=== PATIENT | female | born 1935 | race Two or more races ===

== ENCOUNTER 2016-08-16 16:19 | Inpatient (IN) | payer MEDICARE, MEDICAID ==
--- NOTE | 2016-08-16 16:32 | ED Physician Chart ---
Chief Complaint/HPI - Patient Information Date Seen:: 08/16/16 Time Seen:: 16:26 Chief Complaint:: COLD FEET History of Present Illness:: THIS IS AN 81 YEAR OLD FEMALE SENT [facility] BECAUSE HER FEET WERE CHECKED AND WERE BOTH COLD. SHE IS CHRONICALLY ILL WITH DEMENTIA, DIABETES MELLITUS AND HYPERTENSION. SHE IS DNR BUT ORIENTED TO SELF AND PLACE. Allergies:: Allergies Allergy/AdvReac Type Severity Reaction Status Date / Time No Known Allergies Allergy Verified 08/16/16 16:22 Historian:: Medical Records Review:: Nurse's Note Reviewed Review of Systems - Review of Systems General/Constitutional: No fever, No chills, No weight loss, No weakness, No diaphoresis, No edema, No loss of appetite Skin: No skin lesions, No rash, No bruising Head: No headache, No light-headedness Eyes: No loss of vision, No pain, No diplopia ENT: No earache, No nasal drainage, No sore throat, No tinnitus Neck: No neck pain, No swelling, No thyromegaly, No stiffness, No mass noted Cardio Vascular: No chest pain, No palpitations, No PND, No orthopnea, No edema Pulmonary: No SOB, No cough, No sputum, No wheezing GI: No nausea, No vomiting, No diarrhea, No pain, No melena, No hematochezia, No constipation, No hematemesis G/U: No dysuria, No frequency, No hematuria Musculoskeletal: No bone or joint pain, No back pain, No muscle pain, Other ( BOTH FEET ARE COLD BUT NO PAIN) Endocrine: No polyuria, No polydipsia Psychiatric: No prior psych history, No depression, No anxiety, No suicidal ideation Hematopoietic: No bruising, No lymphadenopathy Allergic/Immuno: No urticaria, No angioedema Neurological: No syncope, No focal symptoms, No weakness, No paresthesia, No headache, No seizure, No dizziness, No confusion, No vertigo Past Medical History - Past Medical History Obtainable: Yes Past Medical History: HTN, DM, CAD, Dyslipidemia, Dementia Family History: None Social History: Non Smoker, No Alcohol, No Drug Use Surgical History: None Psychiatricy History: Dementia Medication: Reviewed Family Medical History - Family Member Mother History Unknown: Yes Ethnicity: Living Status: Physical Exam - Physical Examination General/Constitutional: Awake, Well-developed, well-nourished, Alert, No distress, GCS 15, Non-toxic appearing Head: Atraumatic Eyes: Lids, conjuctiva normal, PERRL, EOMI Skin: Nl inspection, No rash, No skin lesions, No ecchymosis, Well hydrated, No lymphadenopathy ENMT: External ears, nose nl, Nasal exam nl, Lips, teeth, gums nl Neck: Nontender, Full ROM w/o pain, No JVD, No nuchal rigidity, No bruit, No mass, No stridor Respiratory: Nl effort/Exclusion, Clear to Auscultation, No Wheeze/Rhonchi/Rales Cardio Vascular: RRR, No murmur, gallop, rubs, NL S1 S2 GI: No tenderness/rebounding/guarding, No organomegaly, No hernia, Normal BS's, Nondistended, No mass/bruits, No McBurney tenderness : No CVA tenderness Extremities: No tenderness or effusion, Full ROM, normal strength in all extremities, No edema, Normal digits & nails Other Extremities comments:: BOTH FEET ARE MODELED AND COLD FROM THE TOES UP TO THE TIBIAL TUBEROUS PROCESSES. THE DORSAL PULSES WERE WEAK AND THE POSTERIOR TIBIAL WERE ALSO WEAK. THERE IS NO SWELLING OF CALF TENDERNESS Neuro/Psych: Alert/oriented, DTR's symmetric, Normal sensory exam, Normal motor strength, Judgement/insight normal, Mood normal, Normal gait, No focal deficits Misc: normal gait, Normal back, No paraspinal tenderness Labs/Radiology/EKG Results - Lab Results Results: Abnormal Lab Results 08/16/16 08/16/16 08/16/16 16:34 16:34 16:34 WBC 6.9 RBC 4.81 Hgb 12.9 Hct 39.5 MCV 82.0 MCH 26.9 L MCHC Differential 32.8 RDW 14.2 Plt Count 219 MPV 7.9 Neutrophils % 54.6 Lymphocytes % 33.4 Monocytes % 7.7 Eosinophils % 3.5 Basophils % 0.8 PT 10.2 INR 1.03 PTT (Actin FS) 23.0 L Sodium Potassium Chloride Carbon Dioxide Anion Gap BUN Creatinine Est GFR ( Amer) Est GFR (Non-Af Amer) BUN/Creatinine Ratio Glucose Calcium Total Bilirubin AST ALT Alkaline Phosphatase Troponin I Total Protein Albumin Globulin Albumin/Globulin Ratio Triglycerides 179 H Cholesterol 164 LDL Cholesterol Direct 89 HDL Cholesterol 50 TSH 01/20/17 01/20/17 01/20/17 16:34 16:34 16:34 WBC RBC Hgb Hct MCV MCH MCHC Differential RDW Plt Count MPV Neutrophils % Lymphocytes % Monocytes % Eosinophils % Basophils % PT INR PTT (Actin FS) Sodium 135 L Potassium 3.9 Chloride 100 Carbon Dioxide 30.8 Anion Gap 8.1 BUN 19 Creatinine 0.9 Est GFR ( Amer) TNP Est GFR (Non-Af Amer) TNP BUN/Creatinine Ratio 21.1 Glucose 102 Calcium 9.8 Total Bilirubin 0.2 L AST 18 ALT 11 Alkaline Phosphatase 44 Troponin I < 0.01 L Total Protein 7.4 Albumin 4.0 Globulin 3.4 Albumin/Globulin Ratio 1.2 Triglycerides Cholesterol LDL Cholesterol Direct HDL Cholesterol TSH 1.30 - Radiology Results Results: no acute disease seen in the chest x-ray ultrasound of the lower extremities + decrease arterial blood flow. - EKG Interpretations EKG Time:: 16:29 Rhythm: SINUS [place]: LEFT Rate: 63 ED Septic Shock - . 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
[2016-08-16 16:59] LABS: % BASOPHILS 0.8 % (0.0-2.0); % EOSINOPHILS 3.5 % (0.0-5.0); % LYMPHOCYTES 33.4 % (20.0-50.0); % MONOCYTES 7.7 % (2.0-10.0); % NEUTROPHILS 54.6 % (40.0-80.0); HEMATOCRIT 39.5 % (35.0-45.0); HEMOGLOBIN 12.9 gm/dL (11.7-16.1); MEAN CORPUSCULAR HEMOGLOBIN 26.9 pg (27.0-31.0); MEAN CORPUSCULAR HGB CONC 32.8 pg (28.0-36.0); MEAN PLATELET VOLUME 7.9 fl; NEUTROPHILE ABSOLUTE 3.8 Th/cmm (1.8-8.0); PLATELET COUNT 219 Th/cmm (150-400); RED BLOOD COUNT 4.81 Mil/cmm (3.80-5.20); RED CELL DISTRIBUTION WIDTH 14.2 % (11.5-20.0); WHITE BLOOD COUNT 6.9 Th/cmm (4.8-10.8)
[2016-08-16 17:06] LABS: INR 1.03 (0.5-1.4); PROTHROMBIN TIME (TEST) 10.2 SECONDS (9.5-11.5)
[2016-08-16 17:09] LABS: ALB/GLOB RATIO 1.2 (1.0-1.8); ALKALINE PHOSPHATASE 44 U/L (34-104); ANION GAP 8.1 (7.0-16.0); BILIRUBIN,TOTAL 0.2 mg/dL (0.3-1.0); BUN - UREA NITROGEN 19 mg/dL (7-25); BUN/CREATININE RATIO 21.1; CALCIUM SERUM 9.8 mg/dL (8.6-10.3); CARBON DIOXIDE 30.8 mEq/L (21.0-31.0); CHLORIDE 100 mEq/L (98-107); CREATININE - SERUM 0.9 mg/dL (0.6-1.2); GLUCOSE 102 mg/dL (70-105); POTASSIUM SERUM 3.9 mEq/L (3.5-5.1); SGOT 18 U/L (13-39); SGPT/ALT 11 U/L (7-52); SODIUM SERUM 135 mEq/L (136-145)
[2016-08-16 17:10] LABS: CHOLESTEROL 164 mg/dL (<200); TRIGLYCERIDES 179 mg/dL (<150)
[2016-08-16] MEDS ORDERED: Magnesium Hydroxide (MOM) 30 mL UDC PO PRN (19:39)
[2016-08-16] MEDS ORDERED: Non-Formulary Item 1 EA (Melatonin [Melatonin] 3 MG) PO SCH (21:00)
--- NOTE | 2016-08-16 21:24 | Admit Criteria Form ---
Admit Criteria Forms - Admit Criteria Diagnosis: GENERAL ADMISSION CRITERIA (Place 'X' for any and all applicable criteria): Admission is indicated for ANY ONE of the following: [ ]I. Hemodynamic instability as indicated by ANY ONE of the following(1)(2) (3)(4)(5): [ ]a) Vital sign abnormality not readily corrected by appropriate treatment within 12 to 24 hours indicated by ANY ONE of the following: [ ]i) Hypotension [ ]ii) Symptomatic Tachycardia unresponsive to treatment (eg , analgesia, fluids, sedation as indicated) [ ]iii) Orthostatic vital sign changes unresponsive to treatment (eg, fluids) [ ]b) Vital sign abnormality that is severe indicated by ANY ONE of the following: [ ]i) Inadequate perfusion indicated by ANY ONE of the following: [ ]1) Lactic acidosis (greater than 2 mmol/L) [ ]2) New abnormal capillary refill (greater than 3 seconds) [ ]3) Other metabolic acidosis (arterial pH less than 7.35) not otherwise explained [ ]4) Reduced urine output [ ]5) Altered mental status [ ]6) Myocardial Ischemia [ ]v) Mean arterial pressure[A] less than 60 mm Hg [ ]vi) Mean arterial pressure[A] less than 70 mm Hg after 30 minutes of appropriate treatment (eg, fluid resuscitation) [ ]vii) IV inotropic or vasopressor medication required to maintain adequate blood pressure or perfusion [ ]viii) Sustained heart rate greater than 120 beats per minute in adult or child 6 years or older[B]] [ ]II. Hypertension requiring inpatient treatment as indicated by ANY ONE of the following(6)(7)(8): [ ]a) SBP greater than 220 mm Hg or DBP greater than 120 mm Hg despite treatment [ ]b) SBP greater than 140 mm Hg or DBP greater than 100 mm Hg with evidence of acute end organ damage as indicated by ANY ONE of the following: [ ]i) Encephalopathy [ ]ii) Acute renal failure as indicated by new onset of ANY ONE of the following(9)(10)(11)(12)(13): [ ]1) A 3-fold rise in serum creatinine from baseline [ ]2) Serum creatinine greater than 4 mg/dL ( 354 micromoles/L) with acute rise greater than 0.5 mg/dL (44.2 micromoles/L) [ ]3) Reduction of more than 75% in estimated glomerular filtration rate from baseline [ ]4) Estimated glomerular filtration rate less than 35 mL/min/1.73m2 (0.59 mL/sec/1.73m2) in child up to 18 years of age [ ]5) Cessation of urine output indicated by ALL of the following: [ ]A. Adequate volume status [ ]B. Inadequate urine output as indicated by ANY ONE of the following: [ ]a. Urine output less than 0.3 mL/kg/hr for 24 hours [ ]b. Anuria (urine output less than 0.1 mL/kg/hr) for 12 hours [ ]iii) Aortic dissection [ ]iv) Myocardial ischemia [ ]v) Left ventricular heart failure [ ]vi) Retinal hemorrhage [ ]vii) Other significant finding [ ]c) Hypertension in child requiring inpatient treatment as indicated by ALL of the following(14)(15)(16): [ ]i) Outpatient treatment not effective, not available, or not appropriate [ ]ii) SBP or DBP greater than 95th percentile for age [ ]iii) Evidence of acute end organ damage as indicated by ANY ONE of the following: [ ]1) Altered mental status [ ]2) Acute renal failure as indicated by new onset of ANY ONE of the following(9)(10)(11)(12)(13): [ ]A. A 3-fold rise in serum creatinine from baseline [ ]B. Serum creatinine greater than 4 mg/dL (354 micromoles/L) with acute rise greater than 0.5 mg/dL (44.2 micromoles/L) [ ]C. Reduction of more than 75% in estimated glomerular filtration rate from baseline [ ]D. Estimated glomerular filtration rate less than 35 mL/min/1.73m2 (0.59 mL/sec/1.73m2)in child up to 18 years of age [ ]E. Cessation of urine output indicated by ALL of the following: [ ]a. Adequate volume status [ ]b. Inadequate urine output as indicated by ANY ONE of the following: [ ]1) Urine output less than 0.3 mL/kg/hr for 24 hours [ ]2) Anuria (urine output less than 0.1 mL/kg/hr) for 12 hours [ ]3) Severe headache [ ]4) Visual disturbance [ ]5) Retinal hemorrhage [ ]6) Other significant finding [ ]III. Acute cardiac or peripheral ischemia as indicated by ANY ONE of the following: [ ]a) Acute coronary syndrome(17)(18) [ ]b) Acute peripheral ischemia (eg, pulseless, cool, mottled, or cyanotic extremity)(19) [ ]IV. Cardiac arrhythmias or findings of immediate concern indicated by ANY ONE of the following(20)(21): [ ]a) Heart rhythms that are inherently dangerous or unstable indicated by ANY ONE of the following(22)(23)(24): [ ]i) Resuscitated ventricular fibrillation or cardiac arrest [ ]ii) Ventricular escape rhythm [ ]iii) Sustained ventricular tachycardia (30 seconds or more of ventricular rhythm at greater than 100 beats per minute) [ ]iv) Nonsustained ventricular tachycardia and ANY ONE of the following: [ ]1) Suspected cardiac ischemia as cause or consequence of ventricular tachycardia [ ]2) In setting of acute myocarditis [ ]b) Unstable cardiac conduction defects indicated by ANY ONE of the following(24)(25)(26): [ ]i) Type II second-degree atrioventricular block [ ]ii) Third-degree atrioventricular block [ ]iii) New-onset left bundle branch block with suspected myocardial ischemia [ ]c) Any heart rhythm and ANY ONE of the following(22)(23)(27)(28)( 29): [ ] i) Continuous long-term ECG monitoring needed (eg, initiation of drug requiring monitoring for more than 24 hours) [ ] ii) Patient has automatic implanted cardioverter defibrillator that is repeatedly firing, malfunctioning, or in need of immediate adjustment of settings beyond the scope of ambulatory or observation care. [ ]d) Heart rhythms of concern due to ANY ONE of the following: [ ]i) Hypotension [ ]ii) Respiratory distress [ ]iii) Association with other significant symptoms (eg, bradycardia with syncope or ongoing dizziness, supraventricular tachycardia with chest pain) (27)(28) (30) [ ] V. Severe heart failure as indicated by ANY ONE of the following ( 31)(32): [ ]a) Respiratory distress [ ]b) Hypotension [ ]c) Anasarca (refractory to outpatient therapy) [ ]d) Cardiac arrhythmias of immediate concern [ ]e) Myocardial ischemia [ ]. Respiratory abnormalities, including ANY ONE of the following(33)(34) (35)(36): [ ]a) Respiratory rate greater than 30 breaths per minute unresponsive to treatment [A] [ ]b) New saturation of arterial oxygen less than 90% [ ]c) New partial pressure of carbon dioxide greater than 44 mm Hg ( 5.9 kPa) [ ]d) Supplemental oxygen or respiratory treatments needed that are new or not performable at other levels of care [ ]e) New-onset cyanosis [ ]f) Inability to protect airway [ ]g) Chronic lung disease with severe deterioration (not responsive to emergency and observation care treatment as appropriate) as indicated by ANY ONE of the following(34)(36 ): [ ]i) SaO2 5% below baseline in patient with chronic hypoxemia [ ]ii) New requirement for supplemental oxygen to keep SaO2 at baseline or acceptable level [ ]iii) Required supplemental oxygen performable only in acute inpatient setting [ ]iv) Severe airflow or ventilation abnormalities [ ]v) Previously mobile patient unable to walk between rooms [ ]vi Inability to eat or sleep due to dyspnea [ ]vii) Rapid rate of exacerbation onset [ ]viii) Altered mental status ]VII. Severe airflow or ventilation abnormalities (not responsive to emergency and observation care treatment as appropriate) as indicated by ANY ONE of the following(33)(34)(35)(37): [ ]a) PCO2 greater than 42 mm Hg (5.6 kPa) and pH less than 7.35 (new ) [ ]b) Documented PCO2 increased more than 5 mm Hg (0.7 kPa) from disease baseline [ ]c) Airflow measurements [B] less than 60% of previous best or predicted (eg, peak expiratory flow rate less than 300 L/minute) despite intensive emergent treatment [C] [ ]d) Required respiratory treatments that are performable only in acute inpatient setting [ ]VIII. Impending or actual respiratory arrest ( Also use Respiratory Failure GRG for severe respiratory disease and long-term mechanical ventilation patients) [ ]IX. Neurologic abnormalities, including ANY ONE of the following: [ ]a) New findings that suggest ANY ONE of the following: [ ]i) LOCOM[employer] OPERATOR infection(38) [ ]ii) Cerebral bleeding, ischemia, or vasospasm(39)(40) [ ]iii) Increased intracranial pressure, hydrocephalus, or cerebral edema(41)(42)(43) [ ]iv) Spinal cord injury(44) [ ]b) Uncontrolled seizures(45) [ ]c) New-onset coma (eg, Selin coma scale score less than 9) or unexplained abnormal mental status (eg, Selin coma scale score less than 14) [D](41)(46)(47) [ ]X. New-onset severe neurologic findings requiring inpatient care; examples include(42)(48)(49): [ ]a) Papilledema [ ]b) Cerebral edema [ ]c) Mass effect on CT scan [ ]XI. Suspected acute intra-abdominal process with peritoneal signs, abdominal mass, or similar findings (50)(51)(52) [ ]XII. Severe physiologic disorder remaining after emergency or observation level care (as appropriate) as indicated by ANY ONE of the following (53): [ ]a) Significant dehydration [ ]b) Diabetic ketoacidosis [ ]c) Hyperglycemic hyperosmolar state (eg, osmolality greater than 320 mOsm/kg (mmol/kg) [ ]d) Hypoglycemia [ ]e) Other (new) acid-base disorder with pH less than 7.35 or greater than 7.5(54) [ ]f) Thyroid storm (55) [ ]g) Myxedema coma (55) [ ]XIII. Abdominal abnormalities with ANY ONE of the following(56)(57): [ ]a) Absent bowel sounds with complete ileus [ ]b) Signs of intestinal obstruction or peritonitis [E] [ ]c) Nausea and vomiting that cannot be controlled with outpatient or observation care [ ]XIV. Acute renal failure as indicated by new onset of ANY ONE of the following(9)(10)(11)(12)(13): [ ]a) A 3-fold rise in serum creatinine from baseline [ ]b) Serum creatinine greater than 4 mg/dL (354 micromoles/L) with acute rise greater than 0.5 mg/dL (44.2 micromoles/L) [ ]c) Reduction of more than 75% in estimated glomerular filtration rate from baseline [ ]d) Estimated glomerular filtration rate less than 35 mL/min/ 1.73m2 (0.59 mL/sec/1.73m2) in child up to 18 years of age [ ]e) Cessation of urine output indicated by ALL of the following: [ ]i) Adequate volume status [ ]ii) Inadequate urine output as indicated by ANY ONE of the following: [ ]1) Urine output less than 0.3 mL/kg/hr for 24 hours [ ]2) Anuria (urine output less than 0.1 mL/kg/hr) for 12 hours [ ]XV. Significant uremic complications as indicated by ANY ONE of the following(58)(59)(60): [ ]a) Outpatient therapy is ineffective or not feasible for ANY ONE of the following: [ ]i) Severe heart failure [ ]ii) Severehypertension [ ]iii) Pleural effusion [ ]iv) Pericarditis or pericardial effusion [ ]b) Cardiac arrhythmias of immediate concern [ ]c) Intractable nausea or vomiting [ ]d) Recurrent seizures [ ]e) Encephalopathy [ ]f) Bleeding abnormalities (eg, platelet dysfunction) with active (eg, gastrointestinal) bleeding [ ]g) Dialysis indicated before long-term access or ambulatory arrangements can be made [ ]h) Significant metabolic or electrolyte abnormalities (eg, severe acidosis or hyperkalemia) [ ]XVI. High fever or other high-risk infection situation as indicated by ANY ONE of the following(61)(62)(63)(64): [ ]a) Outpatient and observation care antimicrobial treatment unavailable, not effective, or not appropriate [ ]b) Documented bacteremia [ ]c) Temperature greater than 40.5 degrees C (104.9 degrees F) ( oral) [ ]d) Temperature greater than 39.5 degrees C (103.1 degrees F) ( oral) or less than 36 degrees C (96.8 degrees F) (rectal) that does not respond to e treatment and observation care [ ] XVII. Temperature less than 95 degrees F (35 degrees C)(rectal)(65) [ ] XVIII. Severe nutritional abnormalities as indicated by ALL of the following (66)(67): [ ]a) Inability to tolerate or establish sufficient oral or other enteral nutrition in outpatient setting [ ]b) Parenteral nutrition regimen need that must be implemented on inpatient basis [ ] XIX. Severe electrolyte abnormalities indicated by ALL of the following(68) (69)(70): [ ]a) Electrolytes and associated findings are not as expected for patient baseline or acceptable treatment effects. [ ]b) Severe abnormalities indicated by ANY ONE of the following: [ ]i) Sodium less than 130 mEq/L (mmol/L) (new) [ ]ii)Sodium less than 135 mEq/L (mmol/L) with ANY ONE of the following: [ ]1) Uncorrectable (to near normal or chronic baseline) after trial of outpatient and emergency treatment [ ]2) Altered mental status [ ]3) Seizures [ ]4) Severe medical etiology requiring inpatient management (eg, heart failure, hypovolemia) [ ]iii) Sodium greater than 155 mEq/L (mmol/L) [ ]iv) Sodium greater than 150 mEq/L (mmol/L) with ANY ONE of the following: [ ]1) Uncorrectable (to near normal or chronic baseline) with outpatient and emergency treatment [ ]2) Altered mental status [ ]3) Seizures [ ]4) Severe medical etiology (eg, hypovolemia, diabetes insipidus) [ ]v) Potassium less than 2.5 mEq/L (mmol/L) despite outpatient and emergency treatment [ ]vi) Potassium less than 3 mEq/L (mmol/L) with ANY ONE of the following: [ ]1) Weakness [ ]2) Cardiac abnormality (eg, arrhythmia, conduction disturbance) [ ]3) Cardiac ischemia [ ]4) Ileus [ ]5) Ongoing medical cause requiring inpatient management (eg, acute renal wasting or SIADH) [ ]6) Other severe symptoms [ ]vii) Potassium greater than 6.5 mEq/L (mmol/L) [ ]viii) Potassium greater than 5 mEq/L (mmol/L) with ANY ONE of the following: [ ]1) Uncorrectable (to near normal or chronic baseline) with outpatient and emergency treatment [ ]2) Severe ECG findings [F] [ ]3) Acute worsening of renal failure (creatinine greater than 2.5 mg/dL (221 micromoles/L) or significant elevation for age and size) [ ]4) Severe weakness [ ]5) Severe medical etiology (eg, hemolysis, infection, drug overdose) [ ]ix) Calcium less than 7 mg/dL (1.75 mmol/L) despite outpatient and emergency treatment (72) [ ]x) Calcium less than 8 mg/dL (2 mmol/L) with significant symptoms or findings; examples include(72): [ ]1) Altered mental status [ ]2) Muscle spasms [ ]3) Seizures [ ]4) Breathing difficulty [ ]5) Cardiac abnormality (eg, arrhythmia or conduction disturbance) [ ]xi) Calcium greater than 14 mg/dL (3.5 mmol/L)(72) [ ]xii) Calcium greater than 12 mg/dL (3 mmol/L) with ANY ONE of the following(72): [ ]1) Uncorrectable (to near normal or chronic baseline) with outpatient and emergency treatment [ ]2) Significant dehydration or hypovolemia as indicated by ALL of the following(70)(73)(74): [ ]A. Not resolved with initial treatments [ ]B. Clinically significant dehydration as indicated by ANY ONE of the following: [ ]a. Vomiting refractory to outpatient treatment (ie, precluding oral rehydration) [ ]b. Inability to drink [ ]c. Hypernatremia or other electrolyte abnormality unable to be corrected with outpatient and emergency treatment [ ]d. Failure to remain hydrated with outpatient therapy [ ]e. Reduced urine output [ ]f. Hypotension [ ]g. Serious cause for dehydration requiring acute hospitalization (eg, bowel obstruction, increased intracranial pressure, infectious cause) [ ]h. Child with ANY ONE of the following(75): [ ]1) Severe abdominal tenderness [ ]2) Adequate care not available at home [ ]3) Severe dehydration ( greater than 9% loss of body weight) [ ]4) Significant symptoms or findings; examples include: [ ]A. Altered mental status [ ]B. Cardiac abnormality (eg, arrhythmia, conduction disturbance) [ ]C. Malignant etiology requiring inpatient treatment [ ]xiii) Phosphorus less than 1 mg/dL (0.32 mmol/L) [ ]xiv) Phosphorus less than 1.5 mg/dL (0.48 mmol/L) with ANY ONE of the following: [ ]1) Patient unresponsive to outpatient and emergency treatment [ ]2) Significant symptoms or findings; examples include: [ ]A. Weakness [ ]B. Altered mental status [ ]C. Breathing difficulty [ ]D. Seizures [ ]E. Rhabdomyolysis [ ]xv) Phosphorus greater than 10 mg/dL (3.2 mmol/L) [ ]xvi) Phosphorus greater than 4.5 mg/dL (1.45 mmol/L) (new) with ANY ONE of the following: [ ]1) Severe medical etiology (eg, crush injury, acute renal failure) [ ]2) Associated hypocalcemia with significant findings; examples include: [ ]A. Neurologic symptoms [ ]B. Altered mental status [ ]C. Muscle spasms [ ]D. Seizures [ ]E. Breathing difficulty [ ]F. Cardiac abnormality (eg, arrhythmia, conduction disturbance) [ ]xvii) Magnesium less than 1 mg/dL (0.41 mmol/L) [ ]xviii) Magnesium less than 1.5 mg/dL (0.62 mmol/L) with ANY ONE of the following: [ ]1) Patient unresponsive to outpatient and emergency treatment [ ]2) Associated hypocalcemia with significant findings; examples include: [ ]A. Altered mental status [ ]B. Muscle spasms [ ]C. Seizures [ ]D. Breathing difficulty [ ]E. Cardiac abnormality (eg, arrhythmia , conduction disturbance) [ ]3) Associated hypokalemia (potassium less than 3 mEq/L (mmol/L)) with risk of arrhythmia [ ]xix) Magnesium greater than 4 mEq/L (2 mmol/L) [ ]xx) Magnesium greater than 2.5 mEq/L (1.25 mmol/L) with significant symptoms or findings; examples include: [ ]1) Weakness [ ]2) Altered mental status [ ]3) Cardiac abnormality (eg, arrhythmia, conduction disturbance) [ ]4) Breathing difficulty [ ]5) Severe medical etiology (eg, renal failure, hypovolemia) [ ]xxi) Uric acid greater than 20 mg/dL (1190 micromoles/L)(76) [ ]xxii) Uric acid greater than 8 mg/dL (476 micromoles/L) with significant symptoms or findings of tumor lysis syndrome; examples include(76): [ ]1) Creatinine greater than 1.5 times upper limit of normal [ ]2) Cardiac abnormality (eg, arrhythmia, conduction disturbance) [ ]3) Seizure [ ]XX. Acute blood loss causing significant abnormality as indicated by ANY ONE of the following(77)(78): [ ]a) Hemoglobin less than 10 g/dL (100 g/L) (not baseline) [ ]b) Hematocrit less than 30% (0.30) (not baseline) [ ]c) Repeat hematocrit decreased more than 2% (0.02) [ ]d) Uncontrolled bleeding [ ]XXI. Severe anemia indicated by ANY ONE of the following(78)(79): [ ]a) Altered mental status [ ]b) Chest pain [ ]c) Exertional dyspnea [ ]d) Syncope [ ]e) Other findings suggesting inadequate perfusion [ ]f) Treatment with transfusion or volume replacement is ineffective at resolving ANY ONE of the following [G]: [ ]i) Tachycardia for age [ ]ii) Orthostatic vital sign changes as indicated by ANY ONE of the following(80): [ ]1) Fall in SBP of 20 mm Hg or more 1 to 3 minutes after patient sits or stands from recumbent position [ ]2) Fall in DBP of 10 mm Hg or more 1 to 3 minutes after patient sits or stands from recumbent position [ ]XXII. High-risk low platelet count as indicated by ANY ONE of the following( 81)(82): [ ]a) Severe or life-threatening bleeding (eg, intracranial, major gastrointestinal, or extensive mucosal bleeding), with any reduced platelet count [ ]b) Platelet count less than 20,000/mm3 (20 x109/L) with any active bleeding [ ]c) Platelet count less than 10,000/mm3 (10 x109/L) with minor purpura or petechiae [ ]d) Platelet count less than 5000/mm3 (5 x109/L) [ ]e) Low platelet count with hemolytic anemia [ ]XXIII. Disseminated intravascular coagulation(77)(83) [ ]XXIV. Severe adverse drug or systemic toxin reaction requiring inpatient treatment; examples include(84)(85): [ ]a) Serotonin syndrome(86) [ ]b) Neuroleptic malignant syndrome(86) [ ]c) Cholinergic syndrome with severe symptoms (eg, bronchorrhea, weakness, mental status changes, seizures) [ ]d) Sympathetic syndrome with severe symptoms (eg, seizures, mental status changes, cardiac dysrhythmias) [ ]e) Anticholinergic syndrome [ ]XXV. Severe pain requiring acute inpatient management as indicated by ALL of the following (87)(88)(89): [ ]a) Continuous or frequent (eg, every 2 to 4 hours) parenteral analgesics required [H] [ ]b) Rapid improvement expected from treatment or acute intervention (eg, surgery, anesthesia procedure) [ ]XXVI.Severe behavioral health issues judged unmanageable at a lower level of care (eg, residential) in a patient who is ANY ONE of the following(91) [ ]a) Acutely suicidal [ ]b) A danger to self (eg, self-mutilating or suicidal behavior) [ ]c) A danger to others (eg, assaultive or homicidal behavior) [ ]d) Incapacitated because of grave disability (eg, inability to provide for self at lower level of care) (92) [ X]XXVII. Inpatient monitoring needed; examples include(1)(3)(87)(93)(94)(95)( 96): [X ]a) Vital signs, neurologic signs, or vascular checks more frequently than every 4 hours [ ]b) Cardiac or respiratory monitoring beyond the scope (eg, over 24 hours) of observation care [ ]c) Pulmonary artery catheter monitoring [ ]d) Suspected compartment syndrome(97) (98) [ ]e) Cerebral bleeding, hydrocephalus, or vasospasm monitoring [ ]f) Increased intracranial pressure or cerebral edema monitoring [ ]g) monitoring [ ]XXVIII. Treatment requiring inpatient care; examples include: [ ]a) IV fluid to replace significant ongoing losses (greater than 3 L/m2 per day)(53) [ ]b) High concentration oxygen (greater than 40%)(33)(99)(100) [ ]c) Frequent respiratory therapy (more frequently than every 4 hours) to maintain airflow rates greater than 60% of baseline(33)(99)(100) [ ]d) Epidural analgesia(87) [ ]e) IV anticoagulation, vasoactive, or antiarrhythmic medication(19 )(23) [ ]f) Acute thrombolytics (generally require 24 hours of observation )(101)(102) [ ]XXIX. Emergency procedures needed; examples include: [ ]a) Emergency inpatient surgery [ ]b) Temporary pacemaker placement(103) [ ]c) Chest tube placement with active evacuation (eg, suction, drainage)(104) [ ]d) Emergent cardioversion(105) [ ]e) Emergent cardiac or vascular procedures (eg, cardiac catheterization, angioplasty) (17)(18) [ ]f) Emergent dialysis access placement and institution(10)(106) [ ]g) Emergent pericardiocentesis(107) [ ]h) Emergent plasmapheresis or leukapheresis(83) [ ]i) Emergent tracheostomy The original [employer] content created by [employer] has been revised. The portions of the content which have been revised are identified through the use of italic text or in bold, and [employer] has neither reviewed nor approved the modified material. All other unmodified content is copyright [employer]. Please see references footnoted in the original [employer] edition 2016 Admit Criteria Met?: Yes
[2016-08-16] MEDS: Sodium Chloride 0.9% 1,000 ML IV SCH (22:06)
[2016-08-17 07:14] LABS: % BASOPHILS 0.2 % (0.0-2.0); % EOSINOPHILS 3.2 % (0.0-5.0); % LYMPHOCYTES 27.3 % (20.0-50.0); % MONOCYTES 7.8 % (2.0-10.0); % NEUTROPHILS 61.5 % (40.0-80.0); HEMATOCRIT 37.8 % (35.0-45.0); HEMOGLOBIN 12.5 gm/dL (11.7-16.1); MEAN CELL VOLUME 81.7 fl (81-100); MEAN CORPUSCULAR HEMOGLOBIN 27.1 pg (27.0-31.0); MEAN CORPUSCULAR HGB CONC 33.1 pg (28.0-36.0); MEAN PLATELET VOLUME 7.5 fl; NEUTROPHILE ABSOLUTE 4.2 Th/cmm (1.8-8.0); PLATELET COUNT 202 Th/cmm (150-400); RED BLOOD COUNT 4.62 Mil/cmm (3.80-5.20); RED CELL DISTRIBUTION WIDTH 14.1 % (11.5-20.0); WHITE BLOOD COUNT 6.8 Th/cmm (4.8-10.8)
[2016-08-17 07:26] LABS: ALB/GLOB RATIO 1.2 (1.0-1.8); ALKALINE PHOSPHATASE 39 U/L (34-104); ANION GAP 6.7 (7.0-16.0); BILIRUBIN,TOTAL 0.3 mg/dL (0.3-1.0); BUN - UREA NITROGEN 17 mg/dL (7-25); BUN/CREATININE RATIO 21.3; CALCIUM SERUM 9.7 mg/dL (8.6-10.3); CHLORIDE 104 mEq/L (98-107); CREATININE - SERUM 0.8 mg/dL (0.6-1.2); GLUCOSE 78 mg/dL (70-105); POTASSIUM SERUM 3.7 mEq/L (3.5-5.1); SGOT 17 U/L (13-39); SGPT/ALT 10 U/L (7-52); SODIUM SERUM 138 mEq/L (136-145)
[2016-08-17] MEDS: Multivitamin w/ Minerals Tab PO SCH (08:27)
[2016-08-17] MEDS ORDERED: MEMANTINE 7 MG PO SCH (09:00)
[2016-08-17] MEDS ORDERED: Non-Formulary Item 1 EA (Dextran 70/Hypromellose [Artificial Tears] 1 EACH) OP SCH (09:00)
[2016-08-17] MEDS ORDERED: Non-Formulary Item 1 EA (Isosorbide Dinitrate [Isosorbide Dinitrate] 30 MG) PO SCH (09:00)
[2016-08-17] MEDS ORDERED: Non-Formulary Item 1 EA (Diclofenac Sodium [Voltaren] 100 GM) TP SCH (09:00)
--- NOTE | 2016-08-17 12:03 | Diagnostic Imaging Report ---
Portable chest x-ray HISTORY: Shortness of breath The heart is enlarged. No focal pulmonary processes. No hilar or mediastinal abnormalities. IMPRESSION: 1. No acute pulmonary processes 2. Cardiomegaly
--- NOTE | 2016-08-17 12:03 | Diagnostic Imaging Report ---
Bilateral lower extremity Doppler arterial ultrasound exam HISTORY: Ischemic vascular disease, pain Sonographic sector images were obtained through the arterial systems of both legs. Associated Doppler data was obtained. The exam of the right leg demonstrates biphasic waveforms to the common femoral, superficial femoral, popliteal, anterior tibial, posterior tibial, and dorsalis pedis arteries. Velocities are maintained through the arterial system. Sonographic images demonstrate mild diffuse atherosclerotic changes throughout the arterial system. The ankle-brachial index could not be obtained. The exam of the left leg demonstrates biphasic waveforms throughout the arterial system. Maintenance of normal velocities. Mild diffuse atherosclerotic changes are seen. Pressure measurements cannot be obtained. IMPRESSION: 1. Evidence of mild diffuse bilateral atherosclerotic changes.
--- NOTE | 2016-08-17 13:55 | General Progress Note ---
Subjective - Review of Systems Service Date: 08/17/15 Subjective: My feets are cold Objective - Results Result Diagrams: 08/17/16 06:20 08/17/16 06:20 Recent Labs: Laboratory Last Values WBC 6.8 Th/cmm (4.8-10.8) 08/17/16 06:20 RBC 4.62 Mil/cmm (3.80-5.20) 08/17/16 06:20 Hgb 12.5 gm/dL (11.7-16.1) 08/17/16 06:20 Hct 37.8 % (35.0-45.0) 08/17/16 06:20 MCV 81.7 fl (81-100) 08/17/16 06:20 MCH 27.1 pg (27.0-31.0) 08/17/16 06:20 MCHC Differential 33.1 pg (28.0-36.0) 08/17/16 06:20 RDW 14.1 % (11.5-20.0) 08/17/16 06:20 Plt Count 202 Th/cmm (150-400) 08/17/16 06:20 MPV 7.5 fl 08/17/16 06:20 Neutrophils % 61.5 % (40.0-80.0) 08/17/16 06:20 Lymphocytes % 27.3 % (20.0-50.0) 08/17/16 06:20 Monocytes % 7.8 % (2.0-10.0) 08/17/16 06:20 Eosinophils % 3.2 % (0.0-5.0) 08/17/16 06:20 Basophils % 0.2 % (0.0-2.0) 08/17/16 06:20 PT 10.2 SECONDS (9.5-11.5) 08/16/16 16:34 INR 1.03 (0.5-1.4) 08/16/16 16:34 PTT (Actin FS) 23.0 SECONDS (26.0-38.0) L 08/16/16 16:34 Sodium 138 mEq/L (136-145) 08/17/16 06:20 Potassium 3.7 mEq/L (3.5-5.1) 08/17/16 06:20 Chloride 104 mEq/L (98-107) 08/17/16 06:20 Carbon Dioxide 31.0 mEq/L (21.0-31.0) 08/17/16 06:20 Anion Gap 6.7 (7.0-16.0) L 08/17/16 06:20 BUN 17 mg/dL (7-25) 08/17/16 06:20 Creatinine 0.8 mg/dL (0.6-1.2) 08/17/16 06:20 Est GFR ( Amer) TNP 08/17/16 06:20 Est GFR (Non-Af Amer) TNP 08/17/16 06:20 BUN/Creatinine Ratio 21.3 08/17/16 06:20 Glucose 78 mg/dL (70-105) 08/17/16 06:20 Hemoglobin A1c % 9.9 % (4.0-6.0) H 08/17/16 06:20 Calcium 9.7 mg/dL (8.6-10.3) 08/17/16 06:20 Total Bilirubin 0.3 mg/dL (0.3-1.0) 08/17/16 06:20 AST 17 U/L (13-39) 08/17/16 06:20 ALT 10 U/L (7-52) 08/17/16 06:20 Alkaline Phosphatase 39 U/L (34-104) 08/17/16 06:20 Troponin I < 0.01 ng/mL (0.01-0.05) L 08/16/16 16:34 Total Protein 6.7 gm/dL (6.0-8.3) 08/17/16 06:20 Albumin 3.7 gm/dL (3.7-5.3) 08/17/16 06:20 Globulin 3.0 gm/dL 08/17/16 06:20 Albumin/Globulin Ratio 1.2 (1.0-1.8) 08/17/16 06:20 Triglycerides 179 mg/dL (<150) H 08/16/16 16:34 Cholesterol 164 mg/dL (<200) 08/16/16 16:34 LDL Cholesterol Direct 89 mg/dL (75-193) 08/16/16 16:34 HDL Cholesterol 50 mg/dL (23-92) 08/16/16 16:34 TSH 1.30 uIU/ml (0.34-5.60) 08/16/16 16:34 - Physical Exam Vitals and I&O: Vital Signs Temp 97.0 F 08/17/16 08:00 Pulse 78 08/17/16 08:30 Resp 18 08/17/16 11:00 BP 135/76 08/17/16 08:30 Pulse Ox 100 08/17/16 08:00 Intake & Output 08/16/16 08/17/16 08/17/16 18:59 06:59 18:59 Other: Stool Characteristics Soft Active Medications: Current Medications Acetaminophen (Tylenol) 650 mg PO Q4HR PRN PRN Reason: PAIN Stop: 10/15/16 19:38 Artificial Tears (Artificial Tears Ophth Soln) 1 drop EACH EYE BID [facility] Stop: 10/16/16 16:59 Docusate Sodium (Colace) 100 mg PO BID [facility] Stop: 10/16/16 08:59 Last Admin: 08/17/16 08:27 Dose: 100 mg Duloxetine HCl (Cymbalta) 60 mg PO DAILY [facility] Stop: 10/16/16 08:59 Last Admin: 08/17/16 08:27 Dose: 60 mg Escitalopram Oxalate (Lexapro) 5 mg PO DAILY [facility] PRN Reason: Protocol Stop: 10/16/16 08:59 Famotidine (Pepcid) 40 mg PO BID [facility] Stop: 10/16/16 08:59 Last Admin: 08/17/16 08:26 Dose: 40 mg Gabapentin (Neurontin) 300 mg PO TID [facility] Stop: 10/15/16 20:59 Last Admin: 08/17/16 08:27 Dose: 300 mg Sodium Chloride (Nacl 0.9%) 1,000 mls @ 50 mls/hr IV .Q20H [facility] Stop: 10/15/16 19:46 Last Admin: 08/16/16 22:06 Dose: 50 mls/hr Isosorbide Dinitrate (Isordil) 30 mg PO DAILY [facility] Stop: 10/17/16 08:59 Magnesium Hydroxide (Milk Of Magnesia) 30 ml PO PRN PRN PRN Reason: Constipation Stop: 10/15/16 19:38 Memantine (Namenda) 5 mg PO DAILY [facility] Stop: 10/16/16 08:59 Last Admin: 08/17/16 08:30 Dose: 5 mg Metoprolol Tartrate (Lopressor) 12.5 mg PO DAILY [facility] Stop: 10/16/16 08:59 Last Admin: 08/17/16 08:30 Dose: 12.5 mg Miscellaneous (Melatonin [Melatonin]) 3 mg PO HS [facility] Stop: 10/15/16 20:59 Naproxen (Naprosyn) 500 mg PO Q12HR [facility] Stop: 10/16/16 20:59 Simvastatin (Zocor) 20 mg PO QPM [facility] PRN Reason: Protocol Stop: 10/16/16 16:59 Triamterene/HCTZ (Dyazide) 1 cap PO MWF [facility] Stop: 10/18/16 08:59 General: Alert, Cooperative, No acute distress HEENT: Atraumatic Neck: Supple Cardiovascular: Regular rate Lungs: Clear to auscultation Abdomen: Bowel sounds Extremities: Other (Diminished bilateral pulses, colness of both foots. ) Neurological: Other (Non Ambulatory) Skin: Other (warm and dry) Psych/Mental Status: Mental status NL Assessment/Plan - Problem List Patient Problems: All Active Problems MOTTLED FEET CIRCULATION AND COOL TEMP (Acute) - Assessment Assessment: Patient is awake, alert, calm in no acute distress. Dx PVD, DM, HTN, dementia. - Plan Plan: Abdominal and pelvic US requested, Ankle-braquial index requested. Will continue to monitoring
--- NOTE | 2016-08-17 16:53 | History & Physical ---
CHIEF COMPLAINT: Poor lower extremities circulation. HISTORY OF PRESENT ILLNESS: This is the case of an 81-year-old female that I follow in the [facility]. I received a call from the [facility] stating the patient was complaining of lower extremity pain and coldness of both extremities. Order to transfer the patient to ER was given in order to evaluate and treat. PAST MEDICAL HISTORY: The patient has past medical history of diabetes mellitus, hypertension, dementia, osteoarthrosis, depression and general muscle weakness. ALLERGIES: No known allergies. PAST SURGICAL HISTORY: Noncontributory. FAMILY HISTORY: Noncontributory. SOCIAL HISTORY: The patient is a permanent resident of a [facility]. She is DNR. MEDICATIONS: Reviewed. REVIEW OF SYSTEMS: LUNGS: The patient denies shortness of breath. HEART: The patient denies chest pain. ABDOMEN: Unremarkable. EXTREMITIES: The patient referred pain and coldness of both lower extremities. NEUROLOGICAL: The patient is awake, alert, in no acute distress. Neurological examination was not completed due to patient is not able to walk. IMPRESSION: 1. Peripheral vascular disease. 2. Diabetes mellitus. 3. Hypertension. 4. Dementia. 5. Depression. 6. General muscle weakness. PLAN: 1. The patient will be admitted in the medical surgical floor. 2. IV normal saline. 3. Diet: Low in sodium and diabetic diet. 4. Continue with [facility] medications. 5. Abdominal and pelvic ultrasound. 6. CBC and CMP at a.m. [facility]# [id number]
[2016-08-17] MEDS: Escitalopram Oxalate 5 mg Tab PO SCH (17:08)
[2016-08-17] MEDS: Polyvinyl Alcohol Ophth Soln 15 mL Bottle EACH EYE SCH (17:12)
[2016-08-17] MEDS: Sodium Chloride 0.9% 1,000 ML IV SCH (20:57)
[2016-08-18 05:43] LABS: % BASOPHILS 0.7 % (0.0-2.0); % EOSINOPHILS 4.7 % (0.0-5.0); % LYMPHOCYTES 30.5 % (20.0-50.0); % MONOCYTES 9.8 % (2.0-10.0); % NEUTROPHILS 54.3 % (40.0-80.0); HEMOGLOBIN 12.7 gm/dL (11.7-16.1); MEAN CELL VOLUME 81.4 fl (81-100); MEAN CORPUSCULAR HEMOGLOBIN 27.2 pg (27.0-31.0); MEAN CORPUSCULAR HGB CONC 33.4 pg (28.0-36.0); MEAN PLATELET VOLUME 7.1 fl; PLATELET COUNT 206 Th/cmm (150-400); RED BLOOD COUNT 4.66 Mil/cmm (3.80-5.20); RED CELL DISTRIBUTION WIDTH 14.1 % (11.5-20.0)
[2016-08-18 05:48] LABS: WHITE BLOOD COUNT 5.4 Th/cmm (4.8-10.8)
[2016-08-18 05:59] LABS: ALB/GLOB RATIO 1.2 (1.0-1.8); ALKALINE PHOSPHATASE 41 U/L (34-104); BILIRUBIN,TOTAL 0.4 mg/dL (0.3-1.0); BUN - UREA NITROGEN 13 mg/dL (7-25); BUN/CREATININE RATIO 16.3; CALCIUM SERUM 9.3 mg/dL (8.6-10.3); CARBON DIOXIDE 30.2 mEq/L (21.0-31.0); CREATININE - SERUM 0.8 mg/dL (0.6-1.2); GLUCOSE 246 mg/dL (70-105); SGOT 15 U/L (13-39); SGPT/ALT 9 U/L (7-52)
[2016-08-18 07:57] LABS: CHLORIDE 104 mEq/L (98-107); POTASSIUM SERUM 4.1 mEq/L (3.5-5.1); SODIUM SERUM 139 mEq/L (136-145)
[2016-08-18 08:13] LABS: ANION GAP 8.9 (7.0-16.0)
[2016-08-18] MEDS: Escitalopram Oxalate 5 mg Tab PO SCH (08:23)
[2016-08-18] MEDS: Multivitamin w/ Minerals Tab PO SCH (08:24)
[2016-08-18] MEDS: Polyvinyl Alcohol Ophth Soln 15 mL Bottle EACH EYE SCH ×2 (08:29→16:15)
--- NOTE | 2016-08-18 10:08 | Diagnostic Imaging Report ---
Abdominal ultrasound HISTORY: Pain Exam is limited due to bowel gas. The liver exhibits a homogeneous parenchyma. No focal lesions. The gallbladder appears normal. No calculi are seen. No biliary dilatation. The pancreas cannot be visualized due to bowel gas. The kidneys appear normal bilaterally. The spleen is normal in size. Limited visualization of the abdominal aorta is unremarkable. No definite aneurysm. No other obvious retroperitoneal or intra-abdominal abnormalities. IMPRESSION: 1. Limited exam due to bowel gas 2. No definite abnormalities
--- NOTE | 2016-08-18 10:09 | Diagnostic Imaging Report ---
Pelvic ultrasound HISTORY: Mass. Exam is limited due to transabdominal sonographic technique. There is poor visualization of the uterus. The ovaries are not clearly visualized. No abnormal masses or abnormal fluid collections. IMPRESSION: 1. Very limited exam with no definite abnormal masses or abnormal fluid collections
--- NOTE | 2016-08-18 11:20 | General Progress Note ---
Subjective - Review of Systems Service Date: 08/18/16 Subjective: My feets are cold Objective - Results Result Diagrams: 08/18/16 05:28 08/18/16 05:28 Recent Labs: Laboratory Last Values WBC 5.4 Th/cmm (4.8-10.8) D 08/18/16 05:28 RBC 4.66 Mil/cmm (3.80-5.20) 08/18/16 05:28 Hgb 12.7 gm/dL (11.7-16.1) 08/18/16 05:28 Hct 38.0 % (35.0-45.0) 08/18/16 05:28 MCV 81.4 fl (81-100) 08/18/16 05:28 MCH 27.2 pg (27.0-31.0) 08/18/16 05:28 MCHC Differential 33.4 pg (28.0-36.0) 08/18/16 05:28 RDW 14.1 % (11.5-20.0) 08/18/16 05:28 Plt Count 206 Th/cmm (150-400) 08/18/16 05:28 MPV 7.1 fl 08/18/16 05:28 Neutrophils % 54.3 % (40.0-80.0) 08/18/16 05:28 Lymphocytes % 30.5 % (20.0-50.0) 08/18/16 05:28 Monocytes % 9.8 % (2.0-10.0) 08/18/16 05:28 Eosinophils % 4.7 % (0.0-5.0) 08/18/16 05:28 Basophils % 0.7 % (0.0-2.0) 08/18/16 05:28 PT 10.2 SECONDS (9.5-11.5) 08/16/16 16:34 INR 1.03 (0.5-1.4) 08/16/16 16:34 PTT (Actin FS) 23.0 SECONDS (26.0-38.0) L 08/16/16 16:34 Sodium 139 mEq/L (136-145) 08/18/16 05:28 Potassium 4.1 mEq/L (3.5-5.1) 08/18/16 05:28 Chloride 104 mEq/L (98-107) 08/18/16 05:28 Carbon Dioxide 30.2 mEq/L (21.0-31.0) 08/18/16 05:28 Anion Gap 8.9 (7.0-16.0) 08/18/16 05:28 BUN 13 mg/dL (7-25) 08/18/16 05:28 Creatinine 0.8 mg/dL (0.6-1.2) 08/18/16 05:28 Est GFR ( Amer) TNP 08/18/16 05:28 Est GFR (Non-Af Amer) TNP 08/18/16 05:28 BUN/Creatinine Ratio 16.3 08/18/16 05:28 Glucose 246 mg/dL (70-105) H 08/18/16 05:28 Hemoglobin A1c % 9.9 % (4.0-6.0) H 08/17/16 06:20 Calcium 9.3 mg/dL (8.6-10.3) 08/18/16 05:28 Total Bilirubin 0.4 mg/dL (0.3-1.0) 08/18/16 05:28 AST 15 U/L (13-39) 08/18/16 05:28 ALT 9 U/L (7-52) 08/18/16 05:28 Alkaline Phosphatase 41 U/L (34-104) 08/18/16 05:28 Troponin I < 0.01 ng/mL (0.01-0.05) L 08/16/16 16:34 Total Protein 6.3 gm/dL (6.0-8.3) 08/18/16 05:28 Albumin 3.4 gm/dL (3.7-5.3) L 08/18/16 05:28 Globulin 2.9 gm/dL 08/18/16 05:28 Albumin/Globulin Ratio 1.2 (1.0-1.8) 08/18/16 05:28 Triglycerides 179 mg/dL (<150) H 08/16/16 16:34 Cholesterol 164 mg/dL (<200) 08/16/16 16:34 LDL Cholesterol Direct 89 mg/dL (75-193) 08/16/16 16:34 HDL Cholesterol 50 mg/dL (23-92) 08/16/16 16:34 TSH 1.30 uIU/ml (0.34-5.60) 08/16/16 16:34 - Physical Exam Vitals and I&O: Vital Signs Temp 97.4 F 08/18/16 07:43 Pulse 60 08/18/16 08:25 Resp 18 08/18/16 08:00 BP 127/59 08/18/16 08:25 Pulse Ox 96 08/18/16 08:00 Intake & Output 08/17/16 08/18/16 08/18/16 18:59 06:59 18:59 Intake Total 1999 50 Output Total 0 Balance 1999 50 Intake: Intake, IV Amount 1000 Sodium Chloride 0.9% 1, 1000 000 ml @ 50 mls/hr IV . Q20H [facility] Rx#:[id number] Oral 1000 50 Output: Stool 0 Other: # Voids 2 2 Active Medications: Current Medications Acetaminophen (Tylenol) 650 mg PO Q4HR PRN PRN Reason: PAIN Stop: 10/15/16 19:38 Artificial Tears (Artificial Tears Ophth Soln) 1 drop EACH EYE BID [facility] Stop: 10/16/16 16:59 Last Admin: 08/18/16 08:29 Dose: 1 drop Cilostazol (Pletal) 100 mg PO BID [facility] Stop: 10/17/16 16:59 Docusate Sodium (Colace) 100 mg PO BID [facility] Stop: 10/16/16 08:59 Last Admin: 08/18/16 08:24 Dose: 100 mg Duloxetine HCl (Cymbalta) 60 mg PO DAILY [facility] Stop: 10/16/16 08:59 Last Admin: 08/18/16 08:23 Dose: 60 mg Escitalopram Oxalate (Lexapro) 5 mg PO DAILY [facility] PRN Reason: Protocol Stop: 10/16/16 08:59 Last Admin: 08/18/16 08:23 Dose: 5 mg Famotidine (Pepcid) 40 mg PO BID [facility] Stop: 10/16/16 08:59 Last Admin: 08/18/16 08:24 Dose: 40 mg Gabapentin (Neurontin) 300 mg PO TID [facility] Stop: 10/15/16 20:59 Last Admin: 08/18/16 08:23 Dose: 300 mg Sodium Chloride (Nacl 0.9%) 1,000 mls @ 50 mls/hr IV .Q20H [facility] Stop: 10/15/16 19:46 Last Admin: 08/17/16 20:57 Dose: 50 mls/hr Isosorbide Dinitrate (Isordil) 30 mg PO DAILY [facility] Stop: 10/17/16 08:59 Last Admin: 08/18/16 08:24 Dose: 30 mg Magnesium Hydroxide (Milk Of Magnesia) 30 ml PO PRN PRN PRN Reason: Constipation Stop: 10/15/16 19:38 Memantine (Namenda) 5 mg PO DAILY [facility] Stop: 10/16/16 08:59 Last Admin: 08/18/16 08:23 Dose: 5 mg Metoprolol Tartrate (Lopressor) 12.5 mg PO DAILY [facility] Stop: 10/16/16 08:59 Last Admin: 08/18/16 08:25 Dose: 12.5 mg Miscellaneous (Melatonin [Melatonin]) 3 mg PO HS [facility] Stop: 10/15/16 20:59 Naproxen (Naprosyn) 500 mg PO Q12HR [facility] Stop: 10/16/16 20:59 Last Admin: 08/18/16 08:23 Dose: 500 mg Simvastatin (Zocor) 20 mg PO QPM [facility] PRN Reason: Protocol Stop: 10/16/16 16:59 Last Admin: 08/17/16 17:06 Dose: 20 mg Triamterene/HCTZ (Dyazide) 1 cap PO MWF [facility] Stop: 10/18/16 08:59 General: Alert, Oriented x3, Cooperative, No acute distress HEENT: Atraumatic Neck: Supple Cardiovascular: Regular rate Lungs: Clear to auscultation Abdomen: Bowel sounds, Soft Extremities: Other (Cold and dry) Neurological: Other (Non ambulatory) Skin: Other (Lower extremities skin is cold) Psych/Mental Status: Mental status NL Assessment/Plan - Problem List Patient Problems: All Active Problems MOTTLED FEET CIRCULATION AND COOL TEMP (Acute) - Assessment Assessment: Patient is awake, alert, calm in no acute distress. Dx PVD, DM, HTN, dementia. - Plan Plan: Patient is discharge
[2016-08-18] MEDS: Sodium Chloride 0.9% 1,000 ML IV SCH (21:14)
[2016-08-19] MEDS: Multivitamin w/ Minerals Tab PO SCH (08:59)
[2016-08-19] MEDS: Polyvinyl Alcohol Ophth Soln 15 mL Bottle EACH EYE SCH (08:59)
[2016-08-19] MEDS: Escitalopram Oxalate 5 mg Tab PO SCH (08:59)
--- NOTE | 2016-08-30 21:18 | Discharge Summary ---
CHIEF COMPLAINT: Pain in lower extremities. HISTORY OF PRESENT ILLNESS: This is the case of an 81-year-old female who was sent from senior care secondary to leg pain and feels the lower extremities cold. The patient was sent to Emergency Room for evaluation and treatment. HOSPITAL COURSE AND TREATMENT: When this patient was hospitalized, she was started on IV normal saline. She was continued with senior care medications. A Doppler ultrasound of the lower extremities was done and was found no DVT, ____ ankle brachial index normal. Despite the patient has ____ and lower extremities weak. The patient was started on cilostazol and pain medications. After 3 days in the hospital, it was considered the patient received the maximum benefit of the hospitalization. She was sent back to senior care to continue with the treatment. Case was discussed with daughter and explanation was given regarding at this moment, no alternative to improve the circulation of the lower extremities of her mother. The result at this moment is to start with cilostazol and pain management. CONDITION ON DISCHARGE: At the moment of the discharge, the patient was awake, alert, in no acute distress. DISPOSITION: The patient is sent back to the senior care. IMPRESSION: 1. Peripheral vascular disease. 2. Diabetes mellitus. 3. Hypertension. 4. General muscle weakness. 5. Dementia. 6. Depression. [facility]# [id number]
== END 2016-08-19 11:30 | DRG 301 ==
LOC: ER 16:19 → MSI 17:50
PROVIDERS: ADMIT General Practice; ATTEND General Practice
DX: E11.51 Type 2 diabetes mellitus with diabetic peripheral angiopathy without gangrene (principal); F03.90 Unspecified dementia, unspecified severity, without behavioral disturbance, psychotic disturbance, mood disturbance, and anxiety; I10 Essential (primary) hypertension; F32.9 Major depressive disorder, single episode, unspecified; M19.90 Unspecified osteoarthritis, unspecified site; Z66 Do not resuscitate; I25.10 Atherosclerotic heart disease of native coronary artery without angina pectoris; E78.5 Hyperlipidemia, unspecified; M62.81 Muscle weakness (generalized)
CPT/HCPCS: 36415-UA; 71010-TC; 76700-TC; 76856-TC; 80053-TC; 80061-TC; 83036-90; 84443-TC; 84484-TC; 85025-TC; 85610-TC; 85730-TC; 93005; 93925-TC; J7030; Z7610

== ENCOUNTER 2017-10-01 14:28 | Inpatient (IN) | payer MEDICARE, MEDICAID ==
--- NOTE | 2017-10-01 14:49 | ED Physician Chart ---
ED Chief Complaint/HPI - Patient Information Date Seen:: 10/01/17 Time Seen:: 14:35 Chief Complaint:: Agitation History of Present Illness:: onset x 3 days of agitation and hostile behavior; no report of SIs, trauma, H/As , neck pain, C/P, SOB, Abd. pain, A/N/V/D/C, fever, chills, or urinary s/s Allergies:: Allergies Allergy/AdvReac Type Severity Reaction Status Date / Time No Known Allergies Allergy Verified 08/16/16 16:22 Vitals:: Vital Signs - 8 hr 10/01/17 14:38 Temp 97.3 F HR 98 RR 16 BP 123/60 O2 Sat % 96 Historian:: Patient, EMS Review:: Nurse's Note Reviewed, Old Chart Reviewed, EMS run form Reviewed ED Review of Systems - Review of Systems General/Constitutional: No fever, No chills, No weight loss, No weakness, No diaphoresis, No edema, No loss of appetite Skin: No skin lesions, No rash, No bruising Head: No headache, No light-headedness Eyes: No loss of vision, No pain, No diplopia ENT: No earache, No nasal drainage, No sore throat, No tinnitus Neck: No neck pain, No swelling, No thyromegaly, No stiffness, No mass noted Cardio Vascular: No chest pain, No palpitations, No PND, No orthopnea, No edema Pulmonary: No SOB, No cough, No sputum, No wheezing GI: No nausea, No vomiting, No diarrhea, No pain, No melena, No hematochezia, No constipation, No hematemesis G/U: No dysuria, No frequency, No hematuria, No nacturia 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, No abnormal vaginal bleed, No contraction Musculoskeletal: No bone or joint pain, No back pain, No muscle pain Endocrine: No polyuria, No polydipsia Psychiatric: Prior psych history, Depression, Anxiety, No suicidal ideation, No homicidal ideation, Auditory hallucination, No visual hallucination Hematopoietic: No bruising, No lymphadenopathy Allergic/Immuno: No urticaria, No angioedema Neurological: No syncope, No focal symptoms, No weakness, No paresthesia, No headache, No seizure, No dizziness, Confusion, No vertigo ED Past Medical History - Past Medical History Obtainable: Yes Past Medical History: HTN, DM, CAD, PUD/GERD, Dementia Family History: Diabetes Melitus, HTN Social History: Non Smoker, No Alcohol, No Drug Use, Single, Care Facility Surgical History: None Psychiatricy History: Depression, Schizophrenia, Bipolar, Dementia Medication: Reviewed Family Medical History - Family Member Mother History Unknown: Yes Ethnicity: Living Status: ED Physical Exam - Physical Examination General/Constitutional: Awake, Well-developed, well-nourished, Alert, No distress, GCS 15, Non-toxic appearing, Ambulatory Head: Atraumatic Eyes: Lids, conjuctiva normal, PERRL, EOMI Skin: Nl inspection, No rash, No skin lesions, No ecchymosis, Well hydrated, No lymphadenopathy ENMT: External ears, nose nl, TM canals nl, Nasal exam nl, Lips, teeth, gums nl , Oropharynx nl, Tonsils nl Neck: Nontender, Full ROM w/o pain, No JVD, No nuchal rigidity, No bruit, No mass, No stridor Other Neck comments:: supple; no meningeal signs; no bruits; no cervical tenderness Respiratory: Nl effort/Exclusion, Clear to Auscultation, No Wheeze/Rhonchi/Rales Cardio Vascular: RRR, No murmur, gallop, rubs, NL S1 S2, Carotid/Femoral/Distal pulses equal bilaterally GI: No tenderness/rebounding/guarding, No organomegaly, No hernia, Normal BS's, Nondistended, No mass/bruits, No McBurney tenderness Other GI comments:: no pulsatile masses : No CVA tenderness Extremities: No tenderness or effusion, Full ROM, normal strength in all extremities, No edema, Normal digits & nails Neuro/Psych: Alert/oriented, DTR's symmetric, Normal sensory exam, Normal motor strength, Judgement/insight normal, Mood normal, Normal gait, No focal deficits Misc: Normal back, No paraspinal tenderness ED Labs/Radiology/EKG Results - Lab Results Comments:: Glucose: 430; Na+: 130; + Anemia - Radiology Results Comments:: NAD - EKG Interpretations EKG Time:: 16:04 Rate & Rhythm: 96; NSR Comments:: PVCs; non-specific st-t changes ED Septic Shock - . Is Septic Shock (SBP<90, OR Lactate>4 mmol\L) present?: No - <6hrs of presentation: Vital Signs: Vital Signs - 8 hr 10/01/17 14:38 Temp 97.3 F HR 98 RR 16 BP 123/60 O2 Sat % 96 ED Reassessment (Disposition) - Reassessment Reassessment Condition:: Improved - Diagnosis Diagnosis:: Hyperglycemia; Uncontrolled DM; Hyponatremia; Agitation; Diabetes Mellitus; Dehydration - Aftercare/Follow up Instructions Aftercare/Follow-Up Instructions:: Counseled pt regarding lab results/diagnosis & need follow up, Counseled pt & family regarding lab results/diagnosis & need follow up - Patient Disposition Discharge/Transfer:: Acute Care w/in this hosp Accepting Physician:: Dr. Mcneil Time Called:: 1630 Time Responded:: 16:30 Admitted to:: Telemetry Spoke to:: Dr. Mcneil Admitting Medical Physician:: Dr. Mcneil Condition at Disposition:: Stable, Improved ED Discharge Plan - Patient Disposition Instructions: Psychosis
[2017-10-01 15:05] LABS: % BASOPHILS 0.6 % (0.0-2.0); % EOSINOPHILS 3.8 % (0.0-5.0); % LYMPHOCYTES 23.3 % (20.0-50.0); % NEUTROPHILS 65.3 % (40.0-80.0); EOSINOPHILE ABSOLUTE 0.2 Th/cmm (0.1-0.4); HEMATOCRIT 31.2 % (41.0-60); HEMOGLOBIN 10.3 gm/dL (12-16); LYMPHOCYTE ABSOLUTE 1.4 Th/cmm (1.5-3.0); MEAN CELL VOLUME 73.1 fl (81-100); MEAN CORPUSCULAR HEMOGLOBIN 24.1 pg (27.0-31.0); MEAN PLATELET VOLUME 6.8 fl; MONOCYTE ABSOLUTE 0.4 Th/cmm (0.3-1.0); NEUTROPHILE ABSOLUTE 3.9 Th/cmm (1.8-8.0); PLATELET COUNT 294 Th/cmm (150-400); RED BLOOD COUNT 4.27 Mil/cmm (3.80-5.20); RED CELL DISTRIBUTION WIDTH 14.9 % (11.5-20.0); WHITE BLOOD COUNT 5.9 Th/cmm (4.8-10.8)
[2017-10-01 15:26] LABS: ACETAMINOPHEN < 10.0 ug/mL (10.0-30.0); ALB/GLOB RATIO 1.1 (1.0-1.8); ALBUMIN 3.7 gm/dL (3.7-5.3); ALKALINE PHOSPHATASE 56 U/L (34-104); ANION GAP 6.3 (7.0-16.0); BILIRUBIN,TOTAL 0.2 mg/dL (0.3-1.0); BUN - UREA NITROGEN 24 mg/dL (7-25); CARBON DIOXIDE 29.5 mEq/L (21.0-31.0); CHLORIDE 97 mEq/L (98-107); CHOLESTEROL 131 mg/dL (<200); CREATININE - SERUM 1.3 mg/dL (0.6-1.2); GLUCOSE 430 mg/dL (70-105); HDL -HIGH DENSITY LIPOPROTEIN 48 mg/dL (23-92); POTASSIUM SERUM 3.8 mEq/L (3.5-5.1); SALICYLATES (ASPIRIN) < 25.0 mg/L (30.0-100.0); SGOT 12 U/L (13-39); SGPT/ALT 12 U/L (7-52); SODIUM SERUM 129 mEq/L (136-145); TRIGLYCERIDES 173 mg/dL (<150)
[2017-10-01] MEDS ORDERED: Sodium Chloride 0.9% 1,000 ML IV ONE (16:52)
[2017-10-01] MEDS ORDERED: INSULIN HUMAN REGULAR 100 UNITS/ML UNIT SUBQ ONE (16:53)
[2017-10-01] MEDS ORDERED: INSULIN ASPART, RECOMBINANT 100 UNITS/ML SUBQ ONE (17:03)
[2017-10-01] MEDS ORDERED: INSULIN HUMAN REGULAR 100 UNITS/ML UNIT ONE (17:22)
[2017-10-01 17:43] LABS: AMYLASE SERUM 47 U/L (29-103); LIPASE 45 U/L (11-82)
[2017-10-01] MEDS ORDERED: Magnesium Hydroxide (MOM) 30 mL UDC PO PRN (22:13)
--- NOTE | 2017-10-02 08:02 | Diagnostic Imaging Report ---
Exam: Portable chest x-ray HISTORY: Cough. Findings: Portable upright examination of the chest at 1940 hours reviewed and compared to prior study of 08/16/2016. The study demonstrates cardiomegaly with superimposed congestive heart failure. There is left lower lobe infiltrate and superimposed effusion. Bony thorax intact. Aortic arch calcified. IMPRESSION: 1. Cardiomegaly congestive heart failure 2. Left lower lobe infiltrate and effusion. Follow-up examination is recommended
--- NOTE | 2017-10-02 08:41 | History and Physical ---
History of Present Illness - HPI Chief Complaint: Increased in agitation, disruptive behavior HPI: This is a permanent resident of a [facility], x 3 days patient has been agitated with disruptive behavior, for this patient was send to ER for Evaluation. During exam at ER was found BS to high. 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 (Depression) GI: Report: No Pertinent Hx Psych: Report: Psychosis Musculoskeletal: Report: Weakness Rheumatologic: Report: No pertinent Hx Infectious Disease: Report: No Pertinent Hx Renal/: Report: No Pertinent Hx Endocrine: Report: Diabetes Dermatology: Report: No Pertinent Hx - Past Surgical History Past Surgical History: No pertinent Hx Family Medical History - Family Member Mother History Unknown: Yes Ethnicity: Living Status: Hx Family Cancer: No Hx Family Coronary Artery Disease: No Hx Family Congestive Heart Failure: No Hx Family Hypertension: No Hx Family Diabetes: No Hx Family Seizures: No Hx Family AIDS: No Hx Family COPD: No Hx Family Hepatitis: No Hx Family Psychiatric Problems: No Social History Smoke: No Alcohol: None Drugs: None Lives: Correction Domestic Violence: Negative - Medications Home Medications: Home Medication Medication Instructions Recorded Type Acetaminophen [Tylenol] 650 mg PO Q4HR PRN 08/16/16 History Dextran 70/Hypromellose 1 each OP BID 08/16/16 History [Artificial Tears] Diclofenac Sodium [Voltaren] 100 gm TP BID 08/16/16 History Docusate Sodium [Colace] 100 mg PO BID 08/16/16 History Duloxetine HCl [Cymbalta] 60 mg PO DAILY 08/16/16 History Escitalopram Oxalate [Lexapro] 5 mg PO DAILY 08/16/16 History Famotidine [Pepcid] 40 mg PO BID 08/16/16 History Fluticasone Propionate Nasal 1 spr NS DAILY PRN 08/16/16 History [Flonase] Gabapentin 300 mg PO TID 08/16/16 History Ibuprofen 400 mg PO Q8H PRN 08/16/16 History Insulin Detemir [Levemir] 37 unit SQ DAILY 08/16/16 History Isosorbide Dinitrate 30 mg PO DAILY 08/16/16 History Magnesium Hydroxide [Milk of 30 ml PO PRN PRN 08/16/16 History Magnesia] Melatonin 3 mg PO HS 08/16/16 History Memantine ER [Namenda Xr] 7 mg PO DAILY 08/16/16 History Metoprolol Tartrate [Lopressor] 12.5 mg PO DAILY 08/16/16 History Multivitamin with Minerals 1 tab PO DAILY 08/16/16 History [Multivitamins with Minerals] Oxybutynin Chloride [Ditropan*] 5 mg PO TID 08/16/16 History Simvastatin [Zocor*] 20 mg PO QPM 08/16/16 History Tramadol HCl [Ultram] 50 mg PO Q4H PRN 08/16/16 History Triamterene/HCTZ [Dyazide] 1 cap PO MWF 08/16/16 History metFORMIN [Glucophage] 850 mg PO TID 08/16/16 History Cilostazol [Pletal] 100 mg PO BID #0 tab 08/18/16 Rx Insulin Detemir [Levemir] 27 unit SQ HS 10/01/17 History - Allergies Allergies/Adverse Reactions: Allergies Allergy/AdvReac Type Severity Reaction Status Date / Time No Known Allergies Allergy Verified 08/16/16 16:22 Review of Systems - Review of Systems Constitutional: Report: No Significant Eyes: Report: No Significant ENT: Report: No Significant Respiratory: Report: No Significant Cardiovascular: Report: No Significant Gastrointestinal: Report: No Significant Genitourinary: Report: No Significant Musculoskeletal: Report: Other (Muscle weakness) Skin: Report: No Significant Neurological: Report: Weakness Physical Exam - Physical Exam HEENT: Report: Ears Nose Throat within normal limits Neck: Report: Within normal limits Cardiovascular Systems: Report: Regular, Rate and Rhythm Respiratory: Report: Breath Sounds are within normal limits Abdomen: Report: Non-tender to palpation Back: Report: Inspection of back is within normal limits. Extremities: Report: Non-tender to palpation. Skin: Report: Color of skin is within normal limits Neuro/Psych: Report: Depressed affect - Lab Results All Lab Results last 24 hours: Laboratory Results - last 24 hr 10/01/17 19:38 POC Glucose 208 H - Assessment Assessment: Patient is awake, alert, calm in no acute distress. Dx: Hyperglycemia, Increased in agitation, Psychosis, HTN, DM, CAD, CHF, Depression. - Plan Plan: Patient in IV NS, Insulin sliding scale, continue with SNF meds. As soon she is better she will be transfered to [facility].
[2017-10-02] MEDS: Escitalopram Oxalate 5 mg Tab PO SCH (08:52)
[2017-10-02] MEDS: Multivitamin w/ Minerals Tab PO SCH (08:54)
[2017-10-02] MEDS ORDERED: Non-Formulary Item 1 EA (Diclofenac Sodium [Voltaren] 100 GM) TP SCH (09:00)
[2017-10-02] MEDS ORDERED: Non-Formulary Item 1 EA (Duloxetine Hcl [Cymbalta] 60 MG) PO SCH (09:00)
[2017-10-02] MEDS ORDERED: Non-Formulary Item 1 EA (Isosorbide Dinitrate [Isosorbide Dinitrate] 30 MG) PO SCH (09:00)
[2017-10-02 09:32] LABS: % BASOPHILS 0.7 % (0.0-2.0); % EOSINOPHILS 4.1 % (0.0-5.0); % LYMPHOCYTES 28.3 % (20.0-50.0); % MONOCYTES 5.1 % (2.0-10.0); % NEUTROPHILS 61.8 % (40.0-80.0); EOSINOPHILE ABSOLUTE 0.2 Th/cmm (0.1-0.4); HEMATOCRIT 31.1 % (41.0-60); HEMOGLOBIN 10.2 gm/dL (12-16); LYMPHOCYTE ABSOLUTE 1.7 Th/cmm (1.5-3.0); MEAN CELL VOLUME 73.7 fl (81-100); MEAN CORPUSCULAR HEMOGLOBIN 24.1 pg (27.0-31.0); MEAN CORPUSCULAR HGB CONC 32.7 pg (28.0-36.0); MEAN PLATELET VOLUME 6.9 fl; MONOCYTE ABSOLUTE 0.3 Th/cmm (0.3-1.0); NEUTROPHILE ABSOLUTE 3.7 Th/cmm (1.8-8.0); PLATELET COUNT 281 Th/cmm (150-400); RED BLOOD COUNT 4.22 Mil/cmm (3.80-5.20); RED CELL DISTRIBUTION WIDTH 15.1 % (11.5-20.0); WHITE BLOOD COUNT 5.9 Th/cmm (4.8-10.8)
[2017-10-02 10:05] LABS: ALB/GLOB RATIO 1.1 (1.0-1.8); ALBUMIN 3.4 gm/dL (3.7-5.3); ALKALINE PHOSPHATASE 51 U/L (34-104); ANION GAP 7.8 (7.0-16.0); BILIRUBIN,TOTAL 0.3 mg/dL (0.3-1.0); BUN - UREA NITROGEN 19 mg/dL (7-25); CALCIUM SERUM 9.4 mg/dL (8.6-10.3); CARBON DIOXIDE 29.7 mEq/L (21.0-31.0); CHLORIDE 108 mEq/L (98-107); CREATININE - SERUM 1.1 mg/dL (0.6-1.2); POTASSIUM SERUM 4.5 mEq/L (3.5-5.1); SGOT 14 U/L (13-39); SGPT/ALT 11 U/L (7-52); SODIUM SERUM 141 mEq/L (136-145); TOTAL PROTEIN,SERUM 6.6 gm/dL (6.0-8.3)
[2017-10-02] MEDS ORDERED: Magnesium Hydroxide (MOM) 30 mL UDC PO PRN (10:12)
[2017-10-02 10:36] LABS: GLUCOSE 104 mg/dL (70-105)
[2017-10-02 15:58] LABS: A1C % 8.8 % (4.0-6.0)
[2017-10-02] MEDS: INSULIN ASPART SLIDING SCALE 100 UNITS/ML UNIT SUBQ SCH ×2 (16:45→22:34)
[2017-10-02] MEDS: Sodium Chloride 0.9% 1,000 ML IV SCH (17:37)
--- NOTE | 2017-10-02 19:52 | Consultation ---
DATE OF CONSULTATION: 10/02/2017 IDENTIFYING INFORMATION: The patient is an 82-year-old female. HISTORY OF PRESENT ILLNESS: This patient originally came into the hospital because of agitation and irritability, provoking other residents. The patient is a well-known case to me, as I have been seeing her for the past 2 years at [place]. The patient is with history of depression. The patient was not a very good historian, unable to tell me exactly what happened. She was calm in general, but not very much able to participate in meaningful conversation. The patient was admitted to the medical floor because of hyperglycemia. PAST PSYCHIATRIC HISTORY: Depression. She denies prior suicide attempt or hospitalization and she used to be on Zoloft while over there or Cymbalta it seem like she has taken off Cymbalta, started on Lexapro 5 mg daily. MEDICAL HISTORY: Hyperglycemia, diabetes mellitus, hypertension, unstable angina, history of falls. ALLERGIES: SHE IS ALLERGIC TO SULFA. FAMILY AND SOCIAL HISTORY: The patient was unable to tell me how many children, first said 2, then said 1, then said 4, not a very good historian, unable to give me much information about her childhood or family history. MENTAL STATUS EXAMINATION: The patient is appropriately dressed, not very well. She was in bed, not willing to participate in meaningful conversation. She was agitated while at [place]. When asked about suicide or homicide, she refused to answer then she said no. She denies any hallucination; however, she was acting very agitated, provoking other residents while at the [facility] and her long and short term memory is poor. Insight and judgment is impaired. IMPRESSION: AXIS I: Depression, recurrent with possible psychosis also rule out delirium. MEDICAL DIAGNOSES: 1. Hyperglycemia ____. 2. Hypertension, unstable angina. My impression may be the patient may have been delirious due to her high blood sugar as she seems to be doing a little bit better now. I did recommend to continue Lexapro. The patient can transfer to [facility] when medically cleared. Thank you very much for allowing me to participate in the care of this most interesting lady. JOB# [id number]
[2017-10-02] MEDS ORDERED: Non-Formulary Item 1 EA (Melatonin [Melatonin] 3 MG) PO SCH (21:00)
[2017-10-03] MEDS: INSULIN ASPART SLIDING SCALE 100 UNITS/ML UNIT SUBQ SCH ×2 (01:30→10:09)
[2017-10-03] MEDS: Sodium Chloride 0.9% 1,000 ML IV SCH (05:05)
[2017-10-03 07:21] LABS: % EOSINOPHILS 4.5 % (0.0-5.0); % LYMPHOCYTES 25.3 % (20.0-50.0); % MONOCYTES 7.8 % (2.0-10.0); % NEUTROPHILS 62.4 % (40.0-80.0); EOSINOPHILE ABSOLUTE 0.3 Th/cmm (0.1-0.4); HEMATOCRIT 30.6 % (41.0-60); HEMOGLOBIN 9.9 gm/dL (12-16); LYMPHOCYTE ABSOLUTE 1.5 Th/cmm (1.5-3.0); MEAN CELL VOLUME 74.1 fl (81-100); MEAN CORPUSCULAR HGB CONC 32.4 pg (28.0-36.0); MEAN PLATELET VOLUME 7.2 fl; MONOCYTE ABSOLUTE 0.5 Th/cmm (0.3-1.0); NEUTROPHILE ABSOLUTE 3.5 Th/cmm (1.8-8.0); PLATELET COUNT 266 Th/cmm (150-400); RED BLOOD COUNT 4.13 Mil/cmm (3.80-5.20); RED CELL DISTRIBUTION WIDTH 15.4 % (11.5-20.0); WHITE BLOOD COUNT 5.8 Th/cmm (4.8-10.8)
[2017-10-03 07:42] LABS: ALB/GLOB RATIO 1.1 (1.0-1.8); ALBUMIN 3.3 gm/dL (3.7-5.3); ALKALINE PHOSPHATASE 49 U/L (34-104); ANION GAP 4.8 (7.0-16.0); BILIRUBIN,TOTAL 0.3 mg/dL (0.3-1.0); BUN - UREA NITROGEN 20 mg/dL (7-25); CALCIUM SERUM 9.3 mg/dL (8.6-10.3); CARBON DIOXIDE 28.8 mEq/L (21.0-31.0); CHLORIDE 109 mEq/L (98-107); CREATININE - SERUM 1.1 mg/dL (0.6-1.2); POTASSIUM SERUM 4.6 mEq/L (3.5-5.1); SGOT 15 U/L (13-39); SGPT/ALT 12 U/L (7-52); SODIUM SERUM 138 mEq/L (136-145); TOTAL PROTEIN,SERUM 6.3 gm/dL (6.0-8.3)
[2017-10-03 07:43] LABS: GLUCOSE 208 mg/dL (70-105)
--- NOTE | 2017-10-03 08:35 | Discharge Summary ---
General Discharge Summary - Discharge Summary Date of Admission: 10/01/17 Admitting Diagnosis: Uncontrolled DM, Increased in agitation, HTN, CAD, CHF, Depression. Discharge Date: 10/03/17 Discharge Diagnosis: Uncontrolled DM, Psychosis, HTN, CAD, CHF, Depression. Laboratory Findings: Laboratory Results - last 24 hr 10/02/17 10/02/17 10/02/17 05:36 09:15 09:15 WBC 5.9 RBC 4.22 Hgb 10.2 L Hct 31.1 L MCV 73.7 L MCH 24.1 L MCHC Differential 32.7 RDW 15.1 Plt Count 281 MPV 6.9 Neutrophils % 61.8 Lymphocytes % 28.3 Monocytes % 5.1 Eosinophils % 4.1 Basophils % 0.7 Sodium 141 Potassium 4.5 Chloride 108 H Carbon Dioxide 29.7 Anion Gap 7.8 BUN 19 Creatinine 1.1 Est GFR ( Amer) TNP Est GFR (Non-Af Amer) TNP BUN/Creatinine Ratio 17.3 Glucose 104 D POC Glucose 66 L Calcium 9.4 Total Bilirubin 0.3 AST 14 ALT 11 Alkaline Phosphatase 51 Total Protein 6.6 Albumin 3.4 L Globulin 3.2 Albumin/Globulin Ratio 1.1 10/02/17 10/02/17 10/02/17 13:59 16:44 21:45 WBC RBC Hgb Hct MCV MCH MCHC Differential RDW Plt Count MPV Neutrophils % Lymphocytes % Monocytes % Eosinophils % Basophils % Sodium Potassium Chloride Carbon Dioxide Anion Gap BUN Creatinine Est GFR ( Amer) Est GFR (Non-Af Amer) BUN/Creatinine Ratio Glucose POC Glucose 185 H 297 H 243 H Calcium Total Bilirubin AST ALT Alkaline Phosphatase Total Protein Albumin Globulin Albumin/Globulin Ratio 10/03/17 10/03/17 10/03/17 06:08 06:50 06:50 WBC 5.8 RBC 4.13 Hgb 9.9 L Hct 30.6 L MCV 74.1 L MCH 24.0 L MCHC Differential 32.4 RDW 15.4 Plt Count 266 MPV 7.2 Neutrophils % 62.4 Lymphocytes % 25.3 Monocytes % 7.8 Eosinophils % 4.5 Basophils % 0.0 Sodium 138 Potassium 4.6 Chloride 109 H Carbon Dioxide 28.8 Anion Gap 4.8 L BUN 20 Creatinine 1.1 Est GFR ( Amer) TNP Est GFR (Non-Af Amer) TNP BUN/Creatinine Ratio 18.2 Glucose 208 H D POC Glucose 187 H Calcium 9.3 Total Bilirubin 0.3 AST 15 ALT 12 Alkaline Phosphatase 49 Total Protein 6.3 Albumin 3.3 L Globulin 3.0 Albumin/Globulin Ratio 1.1 Hospital Course: Patient responded to treatment, Hyperglycemia was controlled. Treatment: IV NS, Insulin sliding scale and continue with SNF meds, Psychiatric eval was done. Disposition: Other Care w/in this hosp Home Medications: Home Medication Medication Instructions Recorded Type Acetaminophen [Tylenol] 650 mg PO Q4HR PRN 08/16/16 History Dextran 70/Hypromellose 1 each OP BID 08/16/16 History [Artificial Tears] Diclofenac Sodium [Voltaren] 100 gm TP BID 08/16/16 History Docusate Sodium [Colace] 100 mg PO BID 08/16/16 History Duloxetine HCl [Cymbalta] 60 mg PO DAILY 08/16/16 History Escitalopram Oxalate [Lexapro] 5 mg PO DAILY 08/16/16 History Famotidine [Pepcid] 40 mg PO BID 08/16/16 History Fluticasone Propionate Nasal 1 spr NS DAILY PRN 08/16/16 History [Flonase] Gabapentin 300 mg PO TID 08/16/16 History Ibuprofen 400 mg PO Q8H PRN 08/16/16 History Insulin Detemir [Levemir] 37 unit SQ DAILY 08/16/16 History Isosorbide Dinitrate 30 mg PO DAILY 08/16/16 History Magnesium Hydroxide [Milk of 30 ml PO PRN PRN 08/16/16 History Magnesia] Melatonin 3 mg PO HS 08/16/16 History Memantine ER [Namenda Xr] 7 mg PO DAILY 08/16/16 History Metoprolol Tartrate [Lopressor] 12.5 mg PO DAILY 08/16/16 History Multivitamin with Minerals 1 tab PO DAILY 08/16/16 History [Multivitamins with Minerals] Oxybutynin Chloride [Ditropan*] 5 mg PO TID 08/16/16 History Simvastatin [Zocor*] 20 mg PO QPM 08/16/16 History Tramadol HCl [Ultram] 50 mg PO Q4H PRN 08/16/16 History Triamterene/HCTZ [Dyazide] 1 cap PO MWF 08/16/16 History metFORMIN [Glucophage] 850 mg PO TID 08/16/16 History Cilostazol [Pletal] 100 mg PO BID #0 tab 08/18/16 Rx Insulin Detemir [Levemir] 27 unit SQ HS 10/01/17 History Insulin Aspart Sliding Scale See Protocol SUBQ Q8H unit 10/03/17 Rx [NovoLOG INSULIN SLIDING SCALE] Isosorbide Mononitrate [Imdur] [address] 10/03/17 Rx Zolpidem Tartrate [Ambien] 5 mg PO HS PRN tab 10/03/17 Rx Inpatient Medications: Current Medications Acetaminophen (Tylenol) 650 mg PO Q4HR PRN PRN Reason: PAIN Stop: 11/30/17 22:12 Last Admin: 10/02/17 21:30 Dose: 650 mg Docusate Sodium (Colace) 100 mg PO BID [facility] Stop: 12/01/17 08:59 Last Admin: 10/02/17 16:43 Dose: 100 mg Duloxetine HCl (Cymbalta) 60 mg PO DAILY [facility] Stop: 12/02/17 08:59 Escitalopram Oxalate (Lexapro) 5 mg PO DAILY [facility] PRN Reason: Protocol Stop: 12/01/17 08:59 Last Admin: 10/02/17 08:52 Dose: 5 mg Famotidine (Pepcid) 40 mg PO BID [facility] Stop: 12/01/17 08:59 Last Admin: 10/02/17 16:43 Dose: 40 mg Sodium Chloride (Nacl 0.9%) 1,000 mls @ 100 mls/hr IV .Q10H [facility] Stop: 11/30/17 17:33 Last Admin: 10/03/17 05:05 Dose: 100 mls/hr Insulin Aspart (Novolog Insulin Sliding Scale) 0 units SUBQ Q8H [facility] PRN Reason: Protocol Stop: 11/30/17 17:29 Last Admin: 10/03/17 01:30 Dose: Not Given Isosorbide Mononitrate (Imdur) 30 mg PO DAILY [facility] Stop: 12/01/17 09:59 Last Admin: 10/02/17 14:21 Dose: 30 mg Magnesium Hydroxide (Milk Of Magnesia) 30 ml PO Q6HR PRN PRN Reason: Constipation Stop: 11/30/17 22:12 Metoprolol Tartrate (Lopressor) 12.5 mg PO DAILY [facility] Stop: 12/01/17 08:59 Last Admin: 10/02/17 09:08 Dose: 12.5 mg Tramadol HCl (Ultram) 50 mg PO Q4H PRN PRN Reason: PAIN Stop: 11/30/17 22:12 Triamterene/HCTZ (Dyazide) 1 cap PO MWF [facility] Stop: 12/02/17 08:59 Zolpidem Tartrate (Ambien) 5 mg PO HS PRN PRN Reason: Insomnia Stop: 12/01/17 02:11 Last Admin: 10/02/17 22:42 Dose: 5 mg Activity: As Tolerated Discharge Diet: 2 Gram Sodium Consults and Follow-Up: Oral Mcneil [Primary Care Provider] - Consulting Speciality: Other (PCP) Instructions: Type 2 Diabetes Mellitus, Adult, Major Depressive Disorder, Hyperglycemia, [id number], Psychosis
[2017-10-03] MEDS: Multivitamin w/ Minerals Tab PO SCH (10:07)
[2017-10-03] MEDS: Escitalopram Oxalate 5 mg Tab PO SCH (10:07)
== END 2017-10-03 14:55 | DRG 638 ==
LOC: ER 14:28 → MSI 16:45
PROVIDERS: ADMIT General Practice; ATTEND General Practice
DX: E11.65 Type 2 diabetes mellitus with hyperglycemia (principal); E87.1 Hypo-osmolality and hyponatremia; I25.110 Atherosclerotic heart disease of native coronary artery with unstable angina pectoris; F33.3 Major depressive disorder, recurrent, severe with psychotic symptoms; I50.9 Heart failure, unspecified; I11.0 Hypertensive heart disease with heart failure; F29 Unspecified psychosis not due to a substance or known physiological condition; K21.9 Gastro-esophageal reflux disease without esophagitis; E86.0 Dehydration; F03.90 Unspecified dementia, unspecified severity, without behavioral disturbance, psychotic disturbance, mood disturbance, and anxiety; Z79.899 Other long term (current) drug therapy; Z79.4 Long term (current) use of insulin; Z88.2 Allergy status to sulfonamides
CPT/HCPCS: 36415-UA; 71045-TC; 80053-TC; 80061-TC; 80320-TC; 80329-TC; 82150-TC; 82948-90; 83036-90; 83690-TC; 84443-TC; 85025-TC; 86592-TC; 93005; J1815; J7030; Z7610

== ENCOUNTER 2017-10-03 17:21 | Inpatient (IN) | payer MEDICARE, MEDICAID ==
[2017-10-03 18:36] VITALS: BP 155/85
[2017-10-03] MEDS ORDERED: Fluticasone Propionate 0.05mg/Actuation 16gm Nasal Spray NS PRN (20:06)
[2017-10-03] MEDS ORDERED: Magnesium Hydroxide (MOM) 30 mL UDC PO PRN (20:06)
[2017-10-03] MEDS: INSULIN ASPART SLIDING SCALE 100 UNITS/ML UNIT SUBQ SCH (20:44)
[2017-10-03] MEDS ORDERED: Non-Formulary Item 1 EA (Melatonin [Melatonin] 3 MG) PO SCH (21:00)
[2017-10-03] MEDS: Insulin Detemir 100 units/mL 10mL Vial SUBQ SCH (21:37)
--- NOTE | 2017-10-04 01:53 | Progress Notes ---
DATE: 10/03/2017 Case was discussed with staff of the patient and reviewed records. The patient continues to be depressed; however, she denies any intent to harm herself or anybody. She denies any hallucinations or paranoia. If she is improving medically, then she needs to go to [facility]. Thank you very much for allowing me to participate in the care of this patient. [facility]# [id number]
[2017-10-04] MEDS: INSULIN ASPART SLIDING SCALE 100 UNITS/ML UNIT SUBQ SCH ×3 (06:03→21:47)
[2017-10-04] MEDS ORDERED: Non-Formulary Item 1 EA (Diclofenac Sodium [Voltaren] 100 GM) TP SCH (09:00)
[2017-10-04] MEDS ORDERED: MEMANTINE 7 MG PO SCH (09:00)
[2017-10-04] MEDS: Multivitamin w/ Minerals Tab PO SCH (09:25)
[2017-10-04] MEDS: Insulin Detemir 100 units/mL 10mL Vial SUBQ SCH ×2 (09:36→21:55)
[2017-10-04] MEDS: Polyvinyl Alcohol Ophth Soln 15 mL Bottle EACH EYE SCH ×2 (09:36→17:20)
--- NOTE | 2017-10-04 11:04 | History and Physical ---
History of Present Illness - HPI Chief Complaint: Increased in agitation HPI: Patient was send from SNF to ER for evaluation for increased in agitation, labs were done and was found Uncontrolled hyperglycemia. She was send to med/Surg for BS control, when BS was controlled she was transferred to [facility] to continue psyqhe treatment. Vital Signs: Last Vital Signs Temp 98.4 F 10/04/17 07:10 Pulse 80 10/04/17 09:44 Resp 20 10/04/17 07:10 BP 133/84 10/04/17 09:44 Pulse Ox 97 10/04/17 07:10 Past Medical History Cardiovascular: Report: CAD, CHF, HTN Pulmonary: Report: No Pertinent Hx SWORD SWALLOWER: Report: No Pertinent Hx GI: Report: No Pertinent Hx Psych: Report: Psychosis Musculoskeletal: Report: Weakness Rheumatologic: Report: No pertinent Hx Infectious Disease: Report: No Pertinent Hx Renal/: Report: No Pertinent Hx Endocrine: Report: Diabetes Dermatology: Report: No Pertinent Hx - Past Surgical History Past Surgical History: No pertinent Hx Family Medical History - Family Member Mother History Unknown: Yes Ethnicity: Unknown Living Status: Unknown Hx Family Cancer: (unknown) Hx Family Coronary Artery Disease: (unknown) Hx Family Congestive Heart Failure: (unknown) Hx Family Hypertension: (unknown) Hx Family Stroke: (unknown) Hx Family Diabetes: (unknown) Hx Family Seizures: (unknown) Hx Family Dementia: (unknown) Hx Family AIDS: (unknown) Hx Family COPD: (unknown) Hx Family Hepatitis: (unknown) Hx Family Psychiatric Problems: (unknown) Hx Family Tuberculosis: (unknown) Social History Smoke: No Alcohol: None Drugs: None Lives: Senior Living Domestic Violence: Negative - Medications Home Medications: Home Medication Medication Instructions Recorded Type Acetaminophen [Tylenol] 650 mg PO Q4HR PRN 08/16/16 History Dextran 70/Hypromellose 1 each OP BID 08/16/16 History [Artificial Tears] Diclofenac Sodium [Voltaren] 100 gm TP BID 08/16/16 History Docusate Sodium [Colace] 100 mg PO BID 08/16/16 History Duloxetine HCl [Cymbalta] 60 mg PO DAILY 08/16/16 History Escitalopram Oxalate [Lexapro] 5 mg PO DAILY 08/16/16 History Famotidine [Pepcid] 40 mg PO BID 08/16/16 History Fluticasone Propionate Nasal 1 spr NS DAILY PRN 08/16/16 History [Flonase] Gabapentin 300 mg PO TID 08/16/16 History Ibuprofen 400 mg PO Q8H PRN 08/16/16 History Insulin Detemir [Levemir] 37 unit SQ DAILY 08/16/16 History Isosorbide Dinitrate 30 mg PO DAILY 08/16/16 History Magnesium Hydroxide [Milk of 30 ml PO PRN PRN 08/16/16 History Magnesia] Melatonin 3 mg PO HS 08/16/16 History Memantine ER [Namenda Xr] 7 mg PO DAILY 08/16/16 History Metoprolol Tartrate [Lopressor] 12.5 mg PO DAILY 08/16/16 History Multivitamin with Minerals 1 tab PO DAILY 08/16/16 History [Multivitamins with Minerals] Oxybutynin Chloride [Ditropan*] 5 mg PO TID 08/16/16 History Simvastatin [Zocor*] 20 mg PO QPM 08/16/16 History Tramadol HCl [Ultram] 50 mg PO Q4H PRN 08/16/16 History Triamterene/HCTZ [Dyazide] 1 cap PO MWF 08/16/16 History metFORMIN [Glucophage] 850 mg PO TID 08/16/16 History Cilostazol [Pletal] 100 mg PO BID #0 tab 08/18/16 Rx Insulin Detemir [Levemir] 27 unit SQ HS 10/01/17 History Insulin Aspart Sliding Scale See Protocol SUBQ Q8H unit 10/03/17 Rx [NovoLOG INSULIN SLIDING SCALE] Isosorbide Mononitrate [Imdur] [address] 10/03/17 Rx Zolpidem Tartrate [Ambien] 5 mg PO HS PRN tab 10/03/17 Rx - Allergies Allergies/Adverse Reactions: Allergies Allergy/AdvReac Type Severity Reaction Status Date / Time No Known Allergies Allergy Verified 08/16/16 16:22 Review of Systems - Review of Systems Constitutional: Report: Weakness Eyes: Report: No Significant ENT: Report: No Significant Respiratory: Report: No Significant Cardiovascular: Report: No Significant Gastrointestinal: Report: No Significant Genitourinary: Report: No Significant Musculoskeletal: Report: No Significant Skin: Report: Other (Body itching) Neurological: Report: Weakness Physical Exam - Physical Exam HEENT: Report: Ears Nose Throat within normal limits Neck: Report: Within normal limits Cardiovascular Systems: Report: Regular, Rate and Rhythm Respiratory: Report: Breath Sounds are within normal limits Abdomen: Report: Non-tender to palpation Back: Report: Inspection of back is within normal limits. Extremities: Report: Non-tender to palpation. Skin: Report: Color of skin is within normal limits, Other (Body itching) Neuro/Psych: Report: Disoriented to name time or place, Depressed affect - Assessment Assessment: Patient is awake, alert, calm, in no acute distress. Dx: Psychosis, Depression, HTN, DM, CAD, CHF. - Plan Plan: Patient is under Psychiatric care, Will continue with SNF meds. PT is requested. Will continue to monitor.
[2017-10-04] MEDS ORDERED: HYDROXYZINE HCL 10 MG/5 ML PO SCH (13:00)
[2017-10-05] MEDS: INSULIN ASPART SLIDING SCALE 100 UNITS/ML UNIT SUBQ SCH ×3 (06:45→21:53)
--- NOTE | 2017-10-05 06:53 | Progress Notes ---
DATE: Dr. Will is covering for Dr. Santiago. SUBJECTIVE: Chart reviewed and the patient interviewed. Also discussed the patient's condition with the staff and reviewed records and labs. The patient is still withdrawn and she is still depressed. She also is still interacting minimally with peers and with others. The patient also is still feeling hopeless. Also had episodes of agitation, but not major. The patient also continued to take her psychotropic medications with no side effects of medications. ASSESSMENT: The patient is still depressed. TREATMENT PLAN: Continue to monitor her behavior and her condition closely and continue to follow up closely. JOB# [id number]
[2017-10-05 06:56] LABS: % BASOPHILS 0.4 % (0.0-2.0); % EOSINOPHILS 4.5 % (0.0-5.0); % LYMPHOCYTES 30.3 % (20.0-50.0); % MONOCYTES 8.6 % (2.0-10.0); % NEUTROPHILS 56.2 % (40.0-80.0); EOSINOPHILE ABSOLUTE 0.3 Th/cmm (0.1-0.4); HEMATOCRIT 31.4 % (41.0-60); HEMOGLOBIN 10.1 gm/dL (12-16); LYMPHOCYTE ABSOLUTE 2.1 Th/cmm (1.5-3.0); MEAN CELL VOLUME 74.2 fl (81-100); MEAN CORPUSCULAR HEMOGLOBIN 23.8 pg (27.0-31.0); MONOCYTE ABSOLUTE 0.6 Th/cmm (0.3-1.0); NEUTROPHILE ABSOLUTE 3.9 Th/cmm (1.8-8.0); PLATELET COUNT 284 Th/cmm (150-400); RED BLOOD COUNT 4.24 Mil/cmm (3.80-5.20); RED CELL DISTRIBUTION WIDTH 15.8 % (11.5-20.0); WHITE BLOOD COUNT 6.9 Th/cmm (4.8-10.8)
[2017-10-05 07:06] LABS: ALB/GLOB RATIO 1.3 (1.0-1.8); ALBUMIN 3.4 gm/dL (3.7-5.3); ALKALINE PHOSPHATASE 45 U/L (34-104); ANION GAP 7.5 (7.0-16.0); BILIRUBIN,TOTAL 0.2 mg/dL (0.3-1.0); BUN - UREA NITROGEN 27 mg/dL (7-25); CALCIUM SERUM 9.1 mg/dL (8.6-10.3); CARBON DIOXIDE 27.1 mEq/L (21.0-31.0); CHLORIDE 107 mEq/L (98-107); CREATININE - SERUM 1.3 mg/dL (0.6-1.2); GLUCOSE 68 mg/dL (70-105); POTASSIUM SERUM 3.6 mEq/L (3.5-5.1); SGOT 17 U/L (13-39); SGPT/ALT 13 U/L (7-52); SODIUM SERUM 138 mEq/L (136-145); TOTAL PROTEIN,SERUM 6.1 gm/dL (6.0-8.3)
[2017-10-05] MEDS: Multivitamin w/ Minerals Tab PO SCH (09:27)
[2017-10-05] MEDS: Insulin Detemir 100 units/mL 10mL Vial SUBQ SCH ×2 (09:33→21:52)
[2017-10-05] MEDS: Polyvinyl Alcohol Ophth Soln 15 mL Bottle EACH EYE SCH ×2 (09:36→17:09)
--- NOTE | 2017-10-05 17:31 | General Progress Note ---
Subjective - Review of Systems Service Date: 10/05/17 Subjective: I am fine Objective - Results Result Diagrams: 10/05/17 06:21 10/05/17 06:21 Recent Labs: Laboratory Last Values WBC 6.9 Th/cmm (4.8-10.8) 10/05/17 06:21 RBC 4.24 Mil/cmm (3.80-5.20) 10/05/17 06:21 Hgb 10.1 gm/dL (12-16) L 10/05/17 06:21 Hct 31.4 % (41.0-60) L 10/05/17 06:21 MCV 74.2 fl (81-100) L 10/05/17 06:21 MCH 23.8 pg (27.0-31.0) L 10/05/17 06:21 MCHC Differential 32.0 pg (28.0-36.0) 10/05/17 06:21 RDW 15.8 % (11.5-20.0) 10/05/17 06:21 Plt Count 284 Th/cmm (150-400) 10/05/17 06:21 MPV 7.0 fl 10/05/17 06:21 Neutrophils % 56.2 % (40.0-80.0) 10/05/17 06:21 Lymphocytes % 30.3 % (20.0-50.0) 10/05/17 06:21 Monocytes % 8.6 % (2.0-10.0) 10/05/17 06:21 Eosinophils % 4.5 % (0.0-5.0) 10/05/17 06:21 Basophils % 0.4 % (0.0-2.0) 10/05/17 06:21 Sodium 138 mEq/L (136-145) 10/05/17 06:21 Potassium 3.6 mEq/L (3.5-5.1) 10/05/17 06:21 Chloride 107 mEq/L (98-107) 10/05/17 06:21 Carbon Dioxide 27.1 mEq/L (21.0-31.0) 10/05/17 06:21 Anion Gap 7.5 (7.0-16.0) 10/05/17 06:21 BUN 27 mg/dL (7-25) H 10/05/17 06:21 Creatinine 1.3 mg/dL (0.6-1.2) H 10/05/17 06:21 Est GFR ( Amer) TNP 10/05/17 06:21 Est GFR (Non-Af Amer) TNP 10/05/17 06:21 BUN/Creatinine Ratio 20.8 10/05/17 06:21 Glucose 68 mg/dL (70-105) L 10/05/17 06:21 Calcium 9.1 mg/dL (8.6-10.3) 10/05/17 06:21 Total Bilirubin 0.2 mg/dL (0.3-1.0) L 10/05/17 06:21 AST 17 U/L (13-39) 10/05/17 06:21 ALT 13 U/L (7-52) 10/05/17 06:21 Alkaline Phosphatase 45 U/L (34-104) 10/05/17 06:21 Total Protein 6.1 gm/dL (6.0-8.3) 10/05/17 06:21 Albumin 3.4 gm/dL (3.7-5.3) L 10/05/17 06:21 Globulin 2.7 gm/dL 10/05/17 06:21 Albumin/Globulin Ratio 1.3 (1.0-1.8) 10/05/17 06:21 TSH 1.15 uIU/ml (0.34-5.60) 10/05/17 06:21 - Physical Exam Vitals and I&O: Vital Signs Temp 99.6 F 10/05/17 15:37 Pulse 68 10/05/17 15:37 Resp 20 10/05/17 15:37 BP 103/75 10/05/17 15:37 Pulse Ox 95 10/05/17 15:37 Intake & Output 10/04/17 10/05/17 10/05/17 17:59 06:59 18:59 Intake Total Output Total Balance Intake: Oral Output: Urine Other: # Voids # Bowel Movements Active Medications: Current Medications Acetaminophen (Tylenol) 650 mg PO Q4HR PRN PRN Reason: PAIN Stop: 12/02/17 20:05 Artificial Tears (Artificial Tears Ophth Soln) 1 drop EACH EYE BID [facility] Stop: 12/03/17 08:59 Last Admin: 10/05/17 09:36 Dose: 1 drop Cilostazol (Pletal) 100 mg PO BID [facility] Stop: 12/03/17 08:59 Last Admin: 10/05/17 09:33 Dose: 100 mg Docusate Sodium (Colace) 100 mg PO BID [facility] Stop: 12/03/17 08:59 Last Admin: 10/05/17 09:27 Dose: 100 mg Duloxetine HCl (Cymbalta) 60 mg PO DAILY [facility] Stop: 12/03/17 08:59 Last Admin: 10/05/17 09:29 Dose: 60 mg Escitalopram Oxalate (Lexapro) 5 mg PO DAILY [facility] PRN Reason: Protocol Stop: 12/03/17 08:59 Famotidine (Pepcid) 40 mg PO BID [facility] Stop: 12/03/17 08:59 Last Admin: 10/05/17 09:31 Dose: 40 mg Fluticasone Propionate (Flonase) 1 spr NS DAILY PRN PRN Reason: Nasal Congestion Stop: 12/02/17 20:05 Gabapentin (Neurontin) 300 mg PO TID [facility] Stop: 12/02/17 20:59 Last Admin: 10/05/17 09:27 Dose: 300 mg Hydralazine HCl (Apresoline) 20 mg PO Q8HR [facility] Stop: 12/03/17 20:59 Last Admin: 10/05/17 06:13 Dose: Not Given Ibuprofen (Motrin) 400 mg PO Q8H PRN PRN Reason: PAIN Stop: 12/02/17 20:05 Insulin Aspart (Novolog Insulin Sliding Scale) 0 units SUBQ Q8H [facility] PRN Reason: Protocol Stop: 12/02/17 18:59 Last Admin: 10/05/17 06:45 Dose: Not Given Insulin Detemir (Levemir Insulin) 27 units SUBQ HS [facility] PRN Reason: Protocol Stop: 12/02/17 20:59 Last Admin: 10/04/17 21:55 Dose: 27 units Insulin Detemir (Levemir Insulin) 37 units SUBQ DAILY [facility] PRN Reason: Protocol Stop: 12/03/17 08:59 Last Admin: 10/05/17 09:33 Dose: 37 units Isosorbide Mononitrate (Imdur) 30 mg PO DAILY [facility] Stop: 12/03/17 08:59 Last Admin: 10/05/17 09:30 Dose: 30 mg Magnesium Hydroxide (Milk Of Magnesia) 30 ml PO PRN PRN PRN Reason: Constipation Stop: 12/02/17 20:05 Memantine (Namenda) 5 mg PO DAILY [facility] Stop: 12/04/17 08:59 Last Admin: 10/05/17 09:35 Dose: 5 mg Metoprolol Tartrate (Lopressor) 12.5 mg PO DAILY [facility] Stop: 12/03/17 08:59 Last Admin: 10/05/17 09:27 Dose: 12.5 mg Miscellaneous (Diclofenac Sodium [Voltaren]) 100 gm TP BID [facility] Stop: 12/03/17 08:59 Oxybutynin Chloride (Ditropan) 5 mg PO TID [facility] Stop: 12/02/17 20:59 Last Admin: 10/05/17 09:30 Dose: 5 mg Simvastatin (Zocor) 20 mg PO QPM [facility] PRN Reason: Protocol Stop: 12/03/17 16:59 Last Admin: 10/04/17 17:19 Dose: 20 mg Tramadol HCl (Ultram) 50 mg PO Q4H PRN PRN Reason: PAIN Stop: 12/02/17 18:47 Last Admin: 10/03/17 20:43 Dose: 50 mg Triamterene/HCTZ (Dyazide) 1 cap PO MWF [facility] Stop: 12/05/17 08:59 Zolpidem Tartrate (Ambien) 5 mg PO HS PRN PRN Reason: Insomnia Stop: 12/02/17 20:05 Last Admin: 10/04/17 21:14 Dose: 5 mg General: Alert, No acute distress HEENT: Atraumatic Neck: Supple Cardiovascular: Regular rate Lungs: Clear to auscultation Abdomen: Bowel sounds, Soft Extremities: Other (No edema, non ambulatory) Neurological: Other (Non ambulatory) Skin: Other (Body itching) Psych/Mental Status: Other (Awake, alert, calm, confused) Assessment/Plan - Assessment Assessment: Patient is awake, alert, calm, in no acute distress. Dx: Psychosis, Depression, HTN, DM, CAD, CHF. - Plan Plan: Patient is under Psychiatric care, Will continue with SNF meds. PT is requested. Will continue to monitor.
[2017-10-06] MEDS: INSULIN ASPART SLIDING SCALE 100 UNITS/ML UNIT SUBQ SCH ×3 (05:58→18:33)
--- NOTE | 2017-10-06 08:40 | General Progress Note ---
Subjective - Review of Systems Service Date: 10/06/17 Subjective: I am fine Objective - Results Result Diagrams: 10/05/17 06:21 10/05/17 06:21 Recent Labs: Laboratory Last Values WBC 6.9 Th/cmm (4.8-10.8) 10/05/17 06:21 RBC 4.24 Mil/cmm (3.80-5.20) 10/05/17 06:21 Hgb 10.1 gm/dL (12-16) L 10/05/17 06:21 Hct 31.4 % (41.0-60) L 10/05/17 06:21 MCV 74.2 fl (81-100) L 10/05/17 06:21 MCH 23.8 pg (27.0-31.0) L 10/05/17 06:21 MCHC Differential 32.0 pg (28.0-36.0) 10/05/17 06:21 RDW 15.8 % (11.5-20.0) 10/05/17 06:21 Plt Count 284 Th/cmm (150-400) 10/05/17 06:21 MPV 7.0 fl 10/05/17 06:21 Neutrophils % 56.2 % (40.0-80.0) 10/05/17 06:21 Lymphocytes % 30.3 % (20.0-50.0) 10/05/17 06:21 Monocytes % 8.6 % (2.0-10.0) 10/05/17 06:21 Eosinophils % 4.5 % (0.0-5.0) 10/05/17 06:21 Basophils % 0.4 % (0.0-2.0) 10/05/17 06:21 Sodium 138 mEq/L (136-145) 10/05/17 06:21 Potassium 3.6 mEq/L (3.5-5.1) 10/05/17 06:21 Chloride 107 mEq/L (98-107) 10/05/17 06:21 Carbon Dioxide 27.1 mEq/L (21.0-31.0) 10/05/17 06:21 Anion Gap 7.5 (7.0-16.0) 10/05/17 06:21 BUN 27 mg/dL (7-25) H 10/05/17 06:21 Creatinine 1.3 mg/dL (0.6-1.2) H 10/05/17 06:21 Est GFR ( Amer) TNP 10/05/17 06:21 Est GFR (Non-Af Amer) TNP 10/05/17 06:21 BUN/Creatinine Ratio 20.8 10/05/17 06:21 Glucose 68 mg/dL (70-105) L 10/05/17 06:21 Calcium 9.1 mg/dL (8.6-10.3) 10/05/17 06:21 Total Bilirubin 0.2 mg/dL (0.3-1.0) L 10/05/17 06:21 AST 17 U/L (13-39) 10/05/17 06:21 ALT 13 U/L (7-52) 10/05/17 06:21 Alkaline Phosphatase 45 U/L (34-104) 10/05/17 06:21 Total Protein 6.1 gm/dL (6.0-8.3) 10/05/17 06:21 Albumin 3.4 gm/dL (3.7-5.3) L 10/05/17 06:21 Globulin 2.7 gm/dL 10/05/17 06:21 Albumin/Globulin Ratio 1.3 (1.0-1.8) 10/05/17 06:21 TSH 1.15 uIU/ml (0.34-5.60) 10/05/17 06:21 - Physical Exam Vitals and I&O: Vital Signs Temp 98.5 F 10/06/17 06:06 Pulse 81 10/06/17 06:06 Resp 20 10/06/17 06:06 BP 103/63 10/06/17 06:06 Pulse Ox 97 10/06/17 06:06 Intake & Output 10/05/17 10/06/17 10/06/17 18:59 06:59 18:59 Intake Total 1200 180 Balance 1200 180 Intake: Oral 1200 180 Other: # Voids 3 2 # Bowel Movements 0 Active Medications: Current Medications Acetaminophen (Tylenol) 650 mg PO Q4HR PRN PRN Reason: PAIN Stop: 12/02/17 20:05 Artificial Tears (Artificial Tears Ophth Soln) 1 drop EACH EYE BID [facility] Stop: 12/03/17 08:59 Last Admin: 10/05/17 17:09 Dose: 1 drop Cilostazol (Pletal) 100 mg PO BID [facility] Stop: 12/03/17 08:59 Last Admin: 10/05/17 17:08 Dose: 100 mg Docusate Sodium (Colace) 100 mg PO BID [facility] Stop: 12/03/17 08:59 Last Admin: 10/05/17 17:05 Dose: 100 mg Duloxetine HCl (Cymbalta) 60 mg PO DAILY [facility] Stop: 12/03/17 08:59 Last Admin: 10/05/17 09:29 Dose: 60 mg Escitalopram Oxalate (Lexapro) 5 mg PO DAILY [facility] PRN Reason: Protocol Stop: 12/05/17 08:59 Famotidine (Pepcid) 40 mg PO BID [facility] Stop: 12/03/17 08:59 Last Admin: 10/05/17 17:05 Dose: 40 mg Fluticasone Propionate (Flonase) 1 spr NS DAILY PRN PRN Reason: Nasal Congestion Stop: 12/02/17 20:05 Gabapentin (Neurontin) 300 mg PO TID [facility] Stop: 12/02/17 20:59 Last Admin: 10/05/17 21:52 Dose: 300 mg Hydralazine HCl (Apresoline) 20 mg PO Q8HR [facility] Stop: 12/03/17 20:59 Last Admin: 10/06/17 05:16 Dose: Not Given Ibuprofen (Motrin) 400 mg PO Q8H PRN PRN Reason: PAIN Stop: 12/02/17 20:05 Insulin Aspart (Novolog Insulin Sliding Scale) 0 units SUBQ Q8H [facility] PRN Reason: Protocol Stop: 12/02/17 18:59 Last Admin: 10/06/17 05:58 Dose: Not Given Insulin Detemir (Levemir Insulin) 27 units SUBQ HS [facility] PRN Reason: Protocol Stop: 12/02/17 20:59 Last Admin: 10/05/17 21:52 Dose: 27 units Insulin Detemir (Levemir Insulin) 37 units SUBQ DAILY [facility] PRN Reason: Protocol Stop: 12/03/17 08:59 Last Admin: 10/05/17 09:33 Dose: 37 units Isosorbide Mononitrate (Imdur) 30 mg PO DAILY [facility] Stop: 12/03/17 08:59 Last Admin: 10/05/17 09:30 Dose: 30 mg Magnesium Hydroxide (Milk Of Magnesia) 30 ml PO PRN PRN PRN Reason: Constipation Stop: 12/02/17 20:05 Memantine (Namenda) 5 mg PO DAILY [facility] Stop: 12/04/17 08:59 Last Admin: 10/05/17 09:35 Dose: 5 mg Metoprolol Tartrate (Lopressor) 12.5 mg PO DAILY [facility] Stop: 12/03/17 08:59 Last Admin: 10/05/17 09:27 Dose: 12.5 mg Miscellaneous (Diclofenac Sodium [Voltaren]) 100 gm TP BID [facility] Stop: 12/03/17 08:59 Oxybutynin Chloride (Ditropan) 5 mg PO TID [facility] Stop: 12/02/17 20:59 Last Admin: 10/05/17 21:52 Dose: 5 mg Simvastatin (Zocor) 20 mg PO QPM [facility] PRN Reason: Protocol Stop: 12/03/17 16:59 Last Admin: 10/05/17 17:06 Dose: 20 mg Tramadol HCl (Ultram) 50 mg PO Q4H PRN PRN Reason: PAIN Stop: 12/02/17 18:47 Last Admin: 10/03/17 20:43 Dose: 50 mg Triamterene/HCTZ (Dyazide) 1 cap PO MWF [facility] Stop: 12/05/17 08:59 Zolpidem Tartrate (Ambien) 5 mg PO HS PRN PRN Reason: Insomnia Stop: 12/02/17 20:05 Last Admin: 10/05/17 22:11 Dose: 5 mg General: Alert, No acute distress HEENT: Atraumatic Neck: Supple Cardiovascular: Regular rate Lungs: Clear to auscultation Abdomen: Bowel sounds, Soft Extremities: Other (No edema, non ambulatory) Neurological: Other (Non ambulatory) Skin: Other (Body itching) Psych/Mental Status: Other (Awake, alert, calm, confused) Assessment/Plan - Assessment Assessment: Patient is awake, alert, calm, in no acute distress. Dx: Psychosis, Depression, HTN, DM, CAD, CHF. - Plan Plan: Patient is under Psychiatric care, Will continue with SNF meds. PT is requested. Will continue to monitor.
[2017-10-06] MEDS ORDERED: Escitalopram Oxalate 5 mg Tab PO SCH (09:00)
[2017-10-06] MEDS: Multivitamin w/ Minerals Tab PO SCH (09:03)
[2017-10-06] MEDS: Polyvinyl Alcohol Ophth Soln 15 mL Bottle EACH EYE SCH ×2 (09:18→16:52)
[2017-10-06] MEDS: Insulin Detemir 100 units/mL 10mL Vial SUBQ SCH ×2 (09:29→21:14)
--- NOTE | 2017-10-06 22:03 | Progress Notes ---
DATE: 10/06/2017 Case was discussed with staff of the patient, reviewed records. The patient continues to be depressed, continues to be easily overwhelmed, anxious, continues to isolate herself, at times suicidal. She is compliant with the medication with no side effects, no sedation, no nausea. We will be increasing the Lexapro to 10 mg a day and is to be on Zoloft and she was at the long-term. We will continue the patient in group therapy, milieu therapy, and adjust medications as needed. JOB# [id number]
[2017-10-07] MEDS: INSULIN ASPART SLIDING SCALE 100 UNITS/ML UNIT SUBQ SCH ×2 (05:31→21:05)
[2017-10-07] MEDS: Multivitamin w/ Minerals Tab PO SCH (08:42)
[2017-10-07] MEDS: Polyvinyl Alcohol Ophth Soln 15 mL Bottle EACH EYE SCH ×2 (08:44→18:05)
--- NOTE | 2017-10-07 09:05 | General Progress Note ---
Subjective - Review of Systems Service Date: 10/07/17 Subjective: I am fine Objective - Results Result Diagrams: 10/05/17 06:21 10/05/17 06:21 Recent Labs: Laboratory Last Values WBC 6.9 Th/cmm (4.8-10.8) 10/05/17 06:21 RBC 4.24 Mil/cmm (3.80-5.20) 10/05/17 06:21 Hgb 10.1 gm/dL (12-16) L 10/05/17 06:21 Hct 31.4 % (41.0-60) L 10/05/17 06:21 MCV 74.2 fl (81-100) L 10/05/17 06:21 MCH 23.8 pg (27.0-31.0) L 10/05/17 06:21 MCHC Differential 32.0 pg (28.0-36.0) 10/05/17 06:21 RDW 15.8 % (11.5-20.0) 10/05/17 06:21 Plt Count 284 Th/cmm (150-400) 10/05/17 06:21 MPV 7.0 fl 10/05/17 06:21 Neutrophils % 56.2 % (40.0-80.0) 10/05/17 06:21 Lymphocytes % 30.3 % (20.0-50.0) 10/05/17 06:21 Monocytes % 8.6 % (2.0-10.0) 10/05/17 06:21 Eosinophils % 4.5 % (0.0-5.0) 10/05/17 06:21 Basophils % 0.4 % (0.0-2.0) 10/05/17 06:21 Sodium 138 mEq/L (136-145) 10/05/17 06:21 Potassium 3.6 mEq/L (3.5-5.1) 10/05/17 06:21 Chloride 107 mEq/L (98-107) 10/05/17 06:21 Carbon Dioxide 27.1 mEq/L (21.0-31.0) 10/05/17 06:21 Anion Gap 7.5 (7.0-16.0) 10/05/17 06:21 BUN 27 mg/dL (7-25) H 10/05/17 06:21 Creatinine 1.3 mg/dL (0.6-1.2) H 10/05/17 06:21 Est GFR ( Amer) TNP 10/05/17 06:21 Est GFR (Non-Af Amer) TNP 10/05/17 06:21 BUN/Creatinine Ratio 20.8 10/05/17 06:21 Glucose 68 mg/dL (70-105) L 10/05/17 06:21 Calcium 9.1 mg/dL (8.6-10.3) 10/05/17 06:21 Total Bilirubin 0.2 mg/dL (0.3-1.0) L 10/05/17 06:21 AST 17 U/L (13-39) 10/05/17 06:21 ALT 13 U/L (7-52) 10/05/17 06:21 Alkaline Phosphatase 45 U/L (34-104) 10/05/17 06:21 Total Protein 6.1 gm/dL (6.0-8.3) 10/05/17 06:21 Albumin 3.4 gm/dL (3.7-5.3) L 10/05/17 06:21 Globulin 2.7 gm/dL 10/05/17 06:21 Albumin/Globulin Ratio 1.3 (1.0-1.8) 10/05/17 06:21 TSH 1.15 uIU/ml (0.34-5.60) 10/05/17 06:21 - Physical Exam Vitals and I&O: Vital Signs Temp 99.6 F 10/07/17 05:44 Pulse 103 10/07/17 08:44 Resp 20 10/07/17 05:44 BP 112/56 10/07/17 08:44 Pulse Ox 96 10/07/17 05:44 Intake & Output 10/06/17 10/07/17 10/07/17 18:59 06:59 18:59 Intake Total 240 Balance 240 Intake: Oral 240 Other: # Voids 2 # Bowel Movements 1 Active Medications: Current Medications Acetaminophen (Tylenol) 650 mg PO Q4HR PRN PRN Reason: PAIN Stop: 12/02/17 20:05 Artificial Tears (Artificial Tears Ophth Soln) 1 drop EACH EYE BID [facility] Stop: 12/03/17 08:59 Last Admin: 10/07/17 08:44 Dose: Not Given Cilostazol (Pletal) 100 mg PO BID [facility] Stop: 12/03/17 08:59 Last Admin: 10/07/17 08:43 Dose: Not Given Docusate Sodium (Colace) 100 mg PO BID [facility] Stop: 12/03/17 08:59 Last Admin: 10/07/17 08:43 Dose: 100 mg Duloxetine HCl (Cymbalta) 60 mg PO DAILY [facility] Stop: 12/03/17 08:59 Last Admin: 10/07/17 08:42 Dose: 60 mg Escitalopram Oxalate (Lexapro) 10 mg PO DAILY [facility] PRN Reason: Protocol Stop: 12/05/17 12:24 Last Admin: 10/07/17 08:43 Dose: 10 mg Famotidine (Pepcid) 40 mg PO BID [facility] Stop: 12/03/17 08:59 Last Admin: 10/07/17 08:43 Dose: 40 mg Fluticasone Propionate (Flonase) 1 spr NS DAILY PRN PRN Reason: Nasal Congestion Stop: 12/02/17 20:05 Gabapentin (Neurontin) 300 mg PO TID [facility] Stop: 12/02/17 20:59 Last Admin: 10/07/17 08:43 Dose: 300 mg Hydralazine HCl (Apresoline) 20 mg PO Q8HR [facility] Stop: 12/03/17 20:59 Last Admin: 10/07/17 05:32 Dose: 20 mg Ibuprofen (Motrin) 400 mg PO Q8H PRN PRN Reason: PAIN Stop: 12/02/17 20:05 Insulin Aspart (Novolog Insulin Sliding Scale) 0 units SUBQ Q8H [facility] PRN Reason: Protocol Stop: 12/02/17 18:59 Last Admin: 10/07/17 05:31 Dose: Not Given Insulin Detemir (Levemir Insulin) 27 units SUBQ HS [facility] PRN Reason: Protocol Stop: 12/02/17 20:59 Last Admin: 10/06/17 21:14 Dose: 27 units Insulin Detemir (Levemir Insulin) 37 units SUBQ DAILY [facility] PRN Reason: Protocol Stop: 12/03/17 08:59 Last Admin: 10/06/17 09:29 Dose: 37 units Isosorbide Mononitrate (Imdur) 30 mg PO DAILY [facility] Stop: 12/03/17 08:59 Last Admin: 10/07/17 08:44 Dose: Not Given Magnesium Hydroxide (Milk Of Magnesia) 30 ml PO DAILY PRN PRN Reason: Constipation Stop: 12/02/17 20:05 Memantine (Namenda) 5 mg PO DAILY [facility] Stop: 12/04/17 08:59 Last Admin: 10/07/17 08:43 Dose: 5 mg Metoprolol Tartrate (Lopressor) 12.5 mg PO DAILY [facility] Stop: 12/03/17 08:59 Last Admin: 10/07/17 08:44 Dose: Not Given Miscellaneous (Diclofenac Sodium [Voltaren]) 100 gm TP BID [facility] Stop: 12/03/17 08:59 Oxybutynin Chloride (Ditropan) 5 mg PO TID [facility] Stop: 12/02/17 20:59 Last Admin: 10/07/17 08:43 Dose: 5 mg Simvastatin (Zocor) 20 mg PO QPM [facility] PRN Reason: Protocol Stop: 12/03/17 16:59 Last Admin: 10/06/17 16:51 Dose: 20 mg Tramadol HCl (Ultram) 50 mg PO Q4H PRN PRN Reason: PAIN Stop: 12/02/17 18:47 Last Admin: 10/07/17 08:43 Dose: 50 mg Triamterene/HCTZ (Dyazide) 1 cap PO MWF [facility] Stop: 12/05/17 08:59 Last Admin: 10/06/17 09:18 Dose: 1 cap Zolpidem Tartrate (Ambien) 5 mg PO HS PRN PRN Reason: Insomnia Stop: 12/02/17 20:05 Last Admin: 10/06/17 21:16 Dose: 5 mg General: Alert, No acute distress HEENT: Atraumatic Neck: Supple Cardiovascular: Regular rate Lungs: Clear to auscultation Abdomen: Bowel sounds, Soft Extremities: Other (No edema, non ambulatory) Neurological: Other (Non ambulatory) Skin: Other (Body itching) Psych/Mental Status: Other (Awake, alert, calm, confused) Assessment/Plan - Assessment Assessment: Patient is awake, alert, calm, in no acute distress. Dx: Psychosis, Depression, HTN, DM, CAD, CHF. - Plan Plan: Patient is under Psychiatric care, Will continue with SNF meds. PT is requested. Will continue to monitor.
[2017-10-07] MEDS: Insulin Detemir 100 units/mL 10mL Vial SUBQ SCH ×2 (10:13→21:04)
--- NOTE | 2017-10-07 22:13 | Progress Notes ---
DATE: 10/07/2017 Case was discussed with staff of the patient, reviewed records. The patient is starting to feel little bit better, sleeping better, eating better. She denies any current intent to harm himself or anybody. She is trying to be helpful with other patients. No side effects with the medication, did increase her Lexapro 10 mg a day and no sedation, no nausea and her agitation seems to be improving. We will continue to work with the patient in group therapy, milieu therapy, and adjust medication as needed. JOB# [id number]
[2017-10-08] MEDS: INSULIN ASPART SLIDING SCALE 100 UNITS/ML UNIT SUBQ SCH ×2 (06:14→21:12)
--- NOTE | 2017-10-08 08:59 | General Progress Note ---
Subjective - Review of Systems Service Date: 10/08/17 Subjective: I am fine Objective - Results Result Diagrams: 10/05/17 06:21 10/05/17 06:21 Recent Labs: Laboratory Last Values WBC 6.9 Th/cmm (4.8-10.8) 10/05/17 06:21 RBC 4.24 Mil/cmm (3.80-5.20) 10/05/17 06:21 Hgb 10.1 gm/dL (12-16) L 10/05/17 06:21 Hct 31.4 % (41.0-60) L 10/05/17 06:21 MCV 74.2 fl (81-100) L 10/05/17 06:21 MCH 23.8 pg (27.0-31.0) L 10/05/17 06:21 MCHC Differential 32.0 pg (28.0-36.0) 10/05/17 06:21 RDW 15.8 % (11.5-20.0) 10/05/17 06:21 Plt Count 284 Th/cmm (150-400) 10/05/17 06:21 MPV 7.0 fl 10/05/17 06:21 Neutrophils % 56.2 % (40.0-80.0) 10/05/17 06:21 Lymphocytes % 30.3 % (20.0-50.0) 10/05/17 06:21 Monocytes % 8.6 % (2.0-10.0) 10/05/17 06:21 Eosinophils % 4.5 % (0.0-5.0) 10/05/17 06:21 Basophils % 0.4 % (0.0-2.0) 10/05/17 06:21 Sodium 138 mEq/L (136-145) 10/05/17 06:21 Potassium 3.6 mEq/L (3.5-5.1) 10/05/17 06:21 Chloride 107 mEq/L (98-107) 10/05/17 06:21 Carbon Dioxide 27.1 mEq/L (21.0-31.0) 10/05/17 06:21 Anion Gap 7.5 (7.0-16.0) 10/05/17 06:21 BUN 27 mg/dL (7-25) H 10/05/17 06:21 Creatinine 1.3 mg/dL (0.6-1.2) H 10/05/17 06:21 Est GFR ( Amer) TNP 10/05/17 06:21 Est GFR (Non-Af Amer) TNP 10/05/17 06:21 BUN/Creatinine Ratio 20.8 10/05/17 06:21 Glucose 68 mg/dL (70-105) L 10/05/17 06:21 Calcium 9.1 mg/dL (8.6-10.3) 10/05/17 06:21 Total Bilirubin 0.2 mg/dL (0.3-1.0) L 10/05/17 06:21 AST 17 U/L (13-39) 10/05/17 06:21 ALT 13 U/L (7-52) 10/05/17 06:21 Alkaline Phosphatase 45 U/L (34-104) 10/05/17 06:21 Total Protein 6.1 gm/dL (6.0-8.3) 10/05/17 06:21 Albumin 3.4 gm/dL (3.7-5.3) L 10/05/17 06:21 Globulin 2.7 gm/dL 10/05/17 06:21 Albumin/Globulin Ratio 1.3 (1.0-1.8) 10/05/17 06:21 TSH 1.15 uIU/ml (0.34-5.60) 10/05/17 06:21 - Physical Exam Vitals and I&O: Vital Signs Temp 98.9 F 10/08/17 05:56 Pulse 82 10/08/17 05:56 Resp 19 10/08/17 05:56 BP 113/70 10/08/17 05:56 Pulse Ox 99 10/08/17 05:56 Intake & Output 10/07/17 10/08/17 10/08/17 18:59 06:59 18:59 Intake Total 180 Balance 180 Intake: Oral 180 Other: # Voids 3 # Bowel Movements 0 Stool Characteristics Formed Brown Active Medications: Current Medications Acetaminophen (Tylenol) 650 mg PO Q4HR PRN PRN Reason: PAIN Stop: 12/02/17 20:05 Artificial Tears (Artificial Tears Ophth Soln) 1 drop EACH EYE BID [facility] Stop: 12/03/17 08:59 Last Admin: 10/07/17 18:05 Dose: Not Given Cilostazol (Pletal) 100 mg PO BID [facility] Stop: 12/03/17 08:59 Last Admin: 10/07/17 18:04 Dose: Not Given Docusate Sodium (Colace) 100 mg PO BID [facility] Stop: 12/03/17 08:59 Last Admin: 10/07/17 18:04 Dose: 100 mg Duloxetine HCl (Cymbalta) 60 mg PO DAILY [facility] Stop: 12/03/17 08:59 Last Admin: 10/07/17 08:42 Dose: 60 mg Escitalopram Oxalate (Lexapro) 10 mg PO DAILY [facility] PRN Reason: Protocol Stop: 12/05/17 12:24 Last Admin: 10/07/17 08:43 Dose: 10 mg Famotidine (Pepcid) 40 mg PO BID [facility] Stop: 12/03/17 08:59 Last Admin: 10/07/17 18:04 Dose: 40 mg Fluticasone Propionate (Flonase) 1 spr NS DAILY PRN PRN Reason: Nasal Congestion Stop: 12/02/17 20:05 Gabapentin (Neurontin) 300 mg PO TID [facility] Stop: 12/02/17 20:59 Last Admin: 10/07/17 21:03 Dose: 300 mg Hydralazine HCl (Apresoline) 20 mg PO Q8HR [facility] Stop: 12/03/17 20:59 Last Admin: 10/08/17 05:41 Dose: Not Given Ibuprofen (Motrin) 400 mg PO Q8H PRN PRN Reason: PAIN Stop: 12/02/17 20:05 Last Admin: 10/07/17 10:10 Dose: 400 mg Insulin Aspart (Novolog Insulin Sliding Scale) 0 units SUBQ 0630 [facility] PRN Reason: Protocol Stop: 12/07/17 06:29 Last Admin: 10/08/17 06:14 Dose: Not Given Insulin Aspart (Novolog Insulin Sliding Scale) 0 units SUBQ 2100 [facility] PRN Reason: Protocol Stop: 12/06/17 20:59 Last Admin: 10/07/17 21:05 Dose: 4 units Insulin Detemir (Levemir Insulin) 27 units SUBQ HS [facility] PRN Reason: Protocol Stop: 12/02/17 20:59 Last Admin: 10/07/17 21:04 Dose: 27 units Insulin Detemir (Levemir Insulin) 37 units SUBQ DAILY [facility] PRN Reason: Protocol Stop: 12/03/17 08:59 Last Admin: 10/07/17 10:13 Dose: 37 units Isosorbide Mononitrate (Imdur) 30 mg PO DAILY [facility] Stop: 12/03/17 08:59 Last Admin: 10/07/17 08:44 Dose: Not Given Magnesium Hydroxide (Milk Of Magnesia) 30 ml PO DAILY PRN PRN Reason: Constipation Stop: 12/02/17 20:05 Memantine (Namenda) 5 mg PO DAILY [facility] Stop: 12/04/17 08:59 Last Admin: 10/07/17 08:43 Dose: 5 mg Metoprolol Tartrate (Lopressor) 12.5 mg PO DAILY [facility] Stop: 12/03/17 08:59 Last Admin: 10/07/17 08:44 Dose: Not Given Oxybutynin Chloride (Ditropan) 5 mg PO TID [facility] Stop: 12/02/17 20:59 Last Admin: 10/07/17 21:04 Dose: 5 mg Simvastatin (Zocor) 20 mg PO QPM [facility] PRN Reason: Protocol Stop: 12/03/17 16:59 Last Admin: 10/07/17 18:04 Dose: 20 mg Tramadol HCl (Ultram) 50 mg PO Q4H PRN PRN Reason: PAIN Stop: 12/02/17 18:47 Last Admin: 10/07/17 08:43 Dose: 50 mg Triamterene/HCTZ (Dyazide) 1 cap PO MWF [facility] Stop: 12/05/17 08:59 Last Admin: 10/06/17 09:18 Dose: 1 cap Zolpidem Tartrate (Ambien) 5 mg PO HS PRN PRN Reason: Insomnia Stop: 12/02/17 20:05 Last Admin: 10/07/17 22:46 Dose: 5 mg General: Alert, No acute distress HEENT: Atraumatic Neck: Supple Cardiovascular: Regular rate Lungs: Clear to auscultation Abdomen: Bowel sounds, Soft Extremities: Other (No edema, non ambulatory) Neurological: Other (Non ambulatory) Skin: Other (Body itching) Psych/Mental Status: Other (Awake, alert, calm, confused) Assessment/Plan - Assessment Assessment: Patient is awake, alert, calm, in no acute distress. Dx: Psychosis, Depression, HTN, DM, CAD, CHF. Anemia - Plan Plan: Patient is under Psychiatric care, Will continue with SNF meds. PT is requested. Will continue to monitor.
[2017-10-08] MEDS: Multivitamin w/ Minerals Tab PO SCH (09:56)
[2017-10-08] MEDS: Ferrous Sulfate 325 MG TAB PO SCH ×2 (09:57→17:08)
[2017-10-08] MEDS: Polyvinyl Alcohol Ophth Soln 15 mL Bottle EACH EYE SCH ×2 (09:57→17:08)
--- NOTE | 2017-10-08 11:14 | Progress Notes ---
DATE: 10/08/2017 SUBJECTIVE: Case was discussed with the staff of the patient and reviewed records. The patient continues to be depressed, overwhelmed, continues to have poor insight. She is eating better, sleeping better, tolerated the increase in Lexapro with no side effects, no sedation, no nausea, no extrapyramidal symptoms. She is also on Cymbalta and no side effects of the medication, no sedation, no nausea. We will continue outpatient group therapy, milieu therapy, adjust medication as needed. [facility]# [id number]
[2017-10-08] MEDS: Insulin Detemir 100 units/mL 10mL Vial SUBQ SCH ×2 (14:16→21:12)
[2017-10-08] MEDS ORDERED: Maalox 30 mL Cup PO PRN (15:10)
[2017-10-09] MEDS: INSULIN ASPART SLIDING SCALE 100 UNITS/ML UNIT SUBQ SCH ×2 (05:45→21:19)
[2017-10-09 09:14] LABS: % BASOPHILS 1.1 % (0.0-2.0); % LYMPHOCYTES 20.4 % (20.0-50.0); % MONOCYTES 6.7 % (2.0-10.0); % NEUTROPHILS 64.8 % (40.0-80.0); BASOPHILE ABSOLUTE 0.1 Th/cumm (0-0.2); EOSINOPHILE ABSOLUTE 0.3 Th/cmm (0.1-0.4); HEMATOCRIT 32.7 % (41.0-60); HEMOGLOBIN 10.5 gm/dL (12-16); MEAN CELL VOLUME 73.9 fl (81-100); MEAN CORPUSCULAR HEMOGLOBIN 23.8 pg (27.0-31.0); MEAN CORPUSCULAR HGB CONC 32.1 pg (28.0-36.0); MEAN PLATELET VOLUME 7.3 fl; MONOCYTE ABSOLUTE 0.3 Th/cmm (0.3-1.0); NEUTROPHILE ABSOLUTE 3.3 Th/cmm (1.8-8.0); PLATELET COUNT 229 Th/cmm (150-400); RED BLOOD COUNT 4.43 Mil/cmm (3.80-5.20); RED CELL DISTRIBUTION WIDTH 16.1 % (11.5-20.0)
[2017-10-09 09:30] LABS: ALB/GLOB RATIO 1.1 (1.0-1.8); ALBUMIN 3.7 gm/dL (3.7-5.3); ALKALINE PHOSPHATASE 56 U/L (34-104); ANION GAP 11.9 (7.0-16.0); BILIRUBIN,TOTAL 0.3 mg/dL (0.3-1.0); BUN - UREA NITROGEN 21 mg/dL (7-25); CALCIUM SERUM 9.5 mg/dL (8.6-10.3); CARBON DIOXIDE 29.1 mEq/L (21.0-31.0); CHLORIDE 98 mEq/L (98-107); CREATININE - SERUM 1.2 mg/dL (0.6-1.2); GLUCOSE 264 mg/dL (70-105); SGOT 23 U/L (13-39); SGPT/ALT 19 U/L (7-52); SODIUM SERUM 134 mEq/L (136-145)
[2017-10-09] MEDS: Multivitamin w/ Minerals Tab PO SCH (09:47)
[2017-10-09] MEDS: Ferrous Sulfate 325 MG TAB PO SCH ×2 (09:47→16:46)
--- NOTE | 2017-10-09 10:44 | General Progress Note ---
Subjective - Review of Systems Service Date: 10/09/17 Subjective: I am fine Objective - Results Result Diagrams: 10/09/17 08:54 10/09/17 08:54 Recent Labs: Laboratory Last Values WBC 5.0 Th/cmm (4.8-10.8) 10/09/17 08:54 RBC 4.43 Mil/cmm (3.80-5.20) 10/09/17 08:54 Hgb 10.5 gm/dL (12-16) L 10/09/17 08:54 Hct 32.7 % (41.0-60) L 10/09/17 08:54 MCV 73.9 fl (81-100) L 10/09/17 08:54 MCH 23.8 pg (27.0-31.0) L 10/09/17 08:54 MCHC Differential 32.1 pg (28.0-36.0) 10/09/17 08:54 RDW 16.1 % (11.5-20.0) 10/09/17 08:54 Plt Count 229 Th/cmm (150-400) 10/09/17 08:54 MPV 7.3 fl 10/09/17 08:54 Neutrophils % 64.8 % (40.0-80.0) 10/09/17 08:54 Lymphocytes % 20.4 % (20.0-50.0) 10/09/17 08:54 Monocytes % 6.7 % (2.0-10.0) 10/09/17 08:54 Eosinophils % 7.0 % (0.0-5.0) H 10/09/17 08:54 Basophils % 1.1 % (0.0-2.0) 10/09/17 08:54 Sodium 134 mEq/L (136-145) L 10/09/17 08:54 Potassium 5.0 mEq/L (3.5-5.1) 10/09/17 08:54 Chloride 98 mEq/L (98-107) 10/09/17 08:54 Carbon Dioxide 29.1 mEq/L (21.0-31.0) 10/09/17 08:54 Anion Gap 11.9 (7.0-16.0) 10/09/17 08:54 BUN 21 mg/dL (7-25) 10/09/17 08:54 Creatinine 1.2 mg/dL (0.6-1.2) 10/09/17 08:54 Est GFR ( Amer) TNP 10/09/17 08:54 Est GFR (Non-Af Amer) TNP 10/09/17 08:54 BUN/Creatinine Ratio 17.5 10/09/17 08:54 Glucose 264 mg/dL (70-105) H 10/09/17 08:54 Calcium 9.5 mg/dL (8.6-10.3) 10/09/17 08:54 Total Bilirubin 0.3 mg/dL (0.3-1.0) 10/09/17 08:54 AST 23 U/L (13-39) 10/09/17 08:54 ALT 19 U/L (7-52) 10/09/17 08:54 Alkaline Phosphatase 56 U/L (34-104) 10/09/17 08:54 Total Protein 7.0 gm/dL (6.0-8.3) 10/09/17 08:54 Albumin 3.7 gm/dL (3.7-5.3) 10/09/17 08:54 Globulin 3.3 gm/dL 10/09/17 08:54 Albumin/Globulin Ratio 1.1 (1.0-1.8) 10/09/17 08:54 TSH 1.15 uIU/ml (0.34-5.60) 10/05/17 06:21 - Physical Exam Vitals and I&O: Vital Signs Temp 98.4 F 10/09/17 05:41 Pulse 80 10/09/17 09:49 Resp 20 10/09/17 05:41 BP 95/55 10/09/17 09:49 Pulse Ox 97 10/09/17 05:41 Intake & Output 10/08/17 10/09/17 10/09/17 18:59 06:59 18:59 Intake Total 960 740 Balance 960 740 Intake: Oral 960 740 Other: # Voids 3 1 # Bowel Movements 0 Active Medications: Current Medications Acetaminophen (Tylenol) 650 mg PO Q4HR PRN PRN Reason: PAIN Stop: 12/02/17 20:05 Last Admin: 10/08/17 21:03 Dose: 650 mg Al Hydrox/Mg Hydrox/Simethicone (Maalox) 30 ml PO Q4HR PRN PRN Reason: Upset Stomach / Indigestion Stop: 12/07/17 15:09 Artificial Tears (Artificial Tears Ophth Soln) 1 drop EACH EYE BID [facility] Stop: 12/03/17 08:59 Last Admin: 10/08/17 17:08 Dose: Not Given Cilostazol (Pletal) 100 mg PO BID [facility] Stop: 12/03/17 08:59 Last Admin: 10/09/17 10:16 Dose: 100 mg Docusate Sodium (Colace) 100 mg PO BID [facility] Stop: 12/03/17 08:59 Last Admin: 10/09/17 09:49 Dose: 100 mg Duloxetine HCl (Cymbalta) 60 mg PO DAILY [facility] Stop: 12/03/17 08:59 Last Admin: 10/09/17 09:48 Dose: 60 mg Escitalopram Oxalate (Lexapro) 10 mg PO DAILY [facility] PRN Reason: Protocol Stop: 12/05/17 12:24 Last Admin: 10/09/17 09:49 Dose: 10 mg Famotidine (Pepcid) 40 mg PO BID [facility] Stop: 12/03/17 08:59 Last Admin: 10/09/17 09:47 Dose: 40 mg Ferrous Sulfate (Iron) 325 mg PO BID [facility] Stop: 12/07/17 08:59 Last Admin: 10/09/17 09:47 Dose: 325 mg Fluticasone Propionate (Flonase) 1 spr NS DAILY PRN PRN Reason: Nasal Congestion Stop: 12/02/17 20:05 Gabapentin (Neurontin) 300 mg PO TID [facility] Stop: 12/02/17 20:59 Last Admin: 10/09/17 09:52 Dose: 300 mg Hydralazine HCl (Apresoline) 20 mg PO Q8HR [facility] Stop: 12/03/17 20:59 Last Admin: 10/09/17 05:44 Dose: 20 mg Ibuprofen (Motrin) 400 mg PO Q8H PRN PRN Reason: PAIN Stop: 12/02/17 20:05 Last Admin: 10/07/17 10:10 Dose: 400 mg Insulin Aspart (Novolog Insulin Sliding Scale) 0 units SUBQ 0630 [facility] PRN Reason: Protocol Stop: 12/07/17 06:29 Last Admin: 10/09/17 05:45 Dose: Not Given Insulin Aspart (Novolog Insulin Sliding Scale) 0 units SUBQ 2100 [facility] PRN Reason: Protocol Stop: 12/06/17 20:59 Last Admin: 10/08/17 21:12 Dose: 10 units Insulin Detemir (Levemir Insulin) 27 units SUBQ HS [facility] PRN Reason: Protocol Stop: 12/02/17 20:59 Last Admin: 10/08/17 21:12 Dose: 27 units Insulin Detemir (Levemir Insulin) 37 units SUBQ DAILY [facility] PRN Reason: Protocol Stop: 12/03/17 08:59 Last Admin: 10/08/17 14:16 Dose: Not Given Isosorbide Mononitrate (Imdur) 30 mg PO DAILY [facility] Stop: 12/03/17 08:59 Last Admin: 10/09/17 09:48 Dose: Not Given Magnesium Hydroxide (Milk Of Magnesia) 30 ml PO DAILY PRN PRN Reason: Constipation Stop: 12/02/17 20:05 Memantine (Namenda) 5 mg PO DAILY [facility] Stop: 12/04/17 08:59 Last Admin: 10/09/17 09:49 Dose: 5 mg Metoprolol Tartrate (Lopressor) 12.5 mg PO DAILY [facility] Stop: 12/03/17 08:59 Last Admin: 10/09/17 09:49 Dose: Not Given Oxybutynin Chloride (Ditropan) 5 mg PO TID [facility] Stop: 12/02/17 20:59 Last Admin: 10/09/17 09:47 Dose: 5 mg Simvastatin (Zocor) 20 mg PO QPM [facility] PRN Reason: Protocol Stop: 12/03/17 16:59 Last Admin: 10/08/17 17:08 Dose: 20 mg Tramadol HCl (Ultram) 50 mg PO Q4H PRN PRN Reason: PAIN Stop: 12/02/17 18:47 Last Admin: 10/09/17 10:23 Dose: 50 mg Triamterene/HCTZ (Dyazide) 1 cap PO MWF [facility] Stop: 12/05/17 08:59 Last Admin: 10/08/17 09:56 Dose: 1 cap Zolpidem Tartrate (Ambien) 5 mg PO HS PRN PRN Reason: Insomnia Stop: 12/02/17 20:05 Last Admin: 10/08/17 21:08 Dose: 5 mg General: Alert, No acute distress HEENT: Atraumatic Neck: Supple Cardiovascular: Regular rate Lungs: Clear to auscultation Abdomen: Bowel sounds, Soft Extremities: Other (No edema, non ambulatory) Neurological: Other (Non ambulatory) Skin: Other (Body itching) Psych/Mental Status: Other (Awake, alert, calm, confused) Assessment/Plan - Assessment Assessment: Patient is awake, alert, calm, in no acute distress. Dx: Psychosis, Depression, HTN, DM, CAD, CHF. Anemia - Plan Plan: Patient is under Psychiatric care, Will continue with SNF meds. PT is requested. Will continue to monitor. Nutritional Asmnt/Malnutr-PDOC - Dietary Evaluation Malnutrition Findings (Please click <Entered> for more info): Nutritional Asmnt/Malnutrition Start: 10/09/17 09: 28 Text: Status: Complete Freq: Document 10/09/17 09:28 LCHENG (Rec: 10/09/17 09:29 LCHENG [email or web address]) Nutritional Asmnt/Malnutrition Patient General Information Nutritional Screening Moderate Risk Diagnosis depression Pertinent Medical Hx/Surgical Hx CAD, CHF, HTN, weakness, DM, psychosis Subjective Information Pt seen in her room having lunch at time of visit. No question or concern about diet . Per EMR, PO intake 75-100%. Current Diet [facility]/ [facility] / S.O Can't verbalize diet edu Pertinent Medications colace, iron, novolog, levemir Pertinent Labs 10/09 Na 134, Glucose 264 Nutritional Hx/Data Height 1.6 m Height (Calculated Centimeters) 160.0 Current Weight (lbs) 55.338 kg Weight (Calculated Kilograms) 55.3 Weight (Calculated Grams) 28384.3 [place] Body Weight 115 Body Mass Index (BMI) 21.6 Weight Status Approriate GI Symptoms GI Symptoms None Last BM 10/07 Difficult in: None Skin Integrity/Comment: intact Current %PO Good (75-100%) Estimated Nutritional Goals BEE in Kcals: Using Current wt Calories/Kcals/Kg 25-30 Kcals Calculated 2252-9860 Protein: Using Current wt Protein g/k-1.2 Protein Calculated 55-66 Fluid: ml 1375-1650ml (1ml/kcal) Nutritional Problem 1. Problem Problem altered nutrition related labs Etiology hx of DM Signs/Symptoms: Glucose 264 Intervention/Recommendation Comments 1. Continue with [facility] 60-gm diet as ordered. 2. MD to adjust insulin for optimal glycemic control. 3. Monitor PO intake, wt, labs and skin integrity 4. F/U as moderate risk in 3-5 days, 10/11-10/13 Expected Outcomes/Goals Expected Outcomes/Goals 1. PO intake to meet at least 75% of nutritional needs. 2. Wt stability, skin to remain intact, labs to approach WNL.
[2017-10-09] MEDS: Insulin Detemir 100 units/mL 10mL Vial SUBQ SCH ×2 (11:25→21:20)
[2017-10-09] MEDS: Polyvinyl Alcohol Ophth Soln 15 mL Bottle EACH EYE SCH ×2 (13:25→19:02)
--- NOTE | 2017-10-10 00:04 | Progress Notes ---
DATE: 10/09/2017 Case was discussed with staff of patient and reviewed records. The patient seems to be showing progress. Sleeping better, eating better, tolerating the increase in Lexapro with no side effects, no sedation, no nausea, no extrapyramidal symptoms. Also she is on Cymbalta 60 mg daily and Neurontin 300 mg 3 times a day. The staff report that her agitation is not as prominent. She seems to be doing better. If she continues to do well, I will discharge her tomorrow. I will continue to work with the patient in group therapy, milieu therapy, and adjust medications as needed. JOB# [id number]
--- NOTE | 2017-10-10 08:41 | General Progress Note ---
Subjective - Review of Systems Service Date: 10/10/17 Subjective: I am fine Objective - Results Result Diagrams: 10/09/17 08:54 10/09/17 08:54 Recent Labs: Laboratory Last Values WBC 5.0 Th/cmm (4.8-10.8) 10/09/17 08:54 RBC 4.43 Mil/cmm (3.80-5.20) 10/09/17 08:54 Hgb 10.5 gm/dL (12-16) L 10/09/17 08:54 Hct 32.7 % (41.0-60) L 10/09/17 08:54 MCV 73.9 fl (81-100) L 10/09/17 08:54 MCH 23.8 pg (27.0-31.0) L 10/09/17 08:54 MCHC Differential 32.1 pg (28.0-36.0) 10/09/17 08:54 RDW 16.1 % (11.5-20.0) 10/09/17 08:54 Plt Count 229 Th/cmm (150-400) 10/09/17 08:54 MPV 7.3 fl 10/09/17 08:54 Neutrophils % 64.8 % (40.0-80.0) 10/09/17 08:54 Lymphocytes % 20.4 % (20.0-50.0) 10/09/17 08:54 Monocytes % 6.7 % (2.0-10.0) 10/09/17 08:54 Eosinophils % 7.0 % (0.0-5.0) H 10/09/17 08:54 Basophils % 1.1 % (0.0-2.0) 10/09/17 08:54 Sodium 134 mEq/L (136-145) L 10/09/17 08:54 Potassium 5.0 mEq/L (3.5-5.1) 10/09/17 08:54 Chloride 98 mEq/L (98-107) 10/09/17 08:54 Carbon Dioxide 29.1 mEq/L (21.0-31.0) 10/09/17 08:54 Anion Gap 11.9 (7.0-16.0) 10/09/17 08:54 BUN 21 mg/dL (7-25) 10/09/17 08:54 Creatinine 1.2 mg/dL (0.6-1.2) 10/09/17 08:54 Est GFR ( Amer) TNP 10/09/17 08:54 Est GFR (Non-Af Amer) TNP 10/09/17 08:54 BUN/Creatinine Ratio 17.5 10/09/17 08:54 Glucose 264 mg/dL (70-105) H 10/09/17 08:54 Calcium 9.5 mg/dL (8.6-10.3) 10/09/17 08:54 Total Bilirubin 0.3 mg/dL (0.3-1.0) 10/09/17 08:54 AST 23 U/L (13-39) 10/09/17 08:54 ALT 19 U/L (7-52) 10/09/17 08:54 Alkaline Phosphatase 56 U/L (34-104) 10/09/17 08:54 Total Protein 7.0 gm/dL (6.0-8.3) 10/09/17 08:54 Albumin 3.7 gm/dL (3.7-5.3) 10/09/17 08:54 Globulin 3.3 gm/dL 10/09/17 08:54 Albumin/Globulin Ratio 1.1 (1.0-1.8) 10/09/17 08:54 TSH 1.39 uIU/ml (0.34-5.60) 10/09/17 08:54 - Physical Exam Vitals and I&O: Vital Signs Temp 98.8 F 10/10/17 06:44 Pulse 91 10/10/17 06:44 Resp 20 10/10/17 06:44 BP 101/53 10/10/17 06:44 Pulse Ox 97 10/10/17 06:44 Intake & Output 10/09/17 10/10/17 10/10/17 18:59 06:59 18:59 Intake Total 720 Balance 720 Intake: Oral 720 Other: # Voids 3 Active Medications: Current Medications Acetaminophen (Tylenol) 650 mg PO Q4HR PRN PRN Reason: PAIN Stop: 12/02/17 20:05 Last Admin: 10/08/17 21:03 Dose: 650 mg Al Hydrox/Mg Hydrox/Simethicone (Maalox) 30 ml PO Q4HR PRN PRN Reason: Upset Stomach / Indigestion Stop: 12/07/17 15:09 Artificial Tears (Artificial Tears Ophth Soln) 1 drop EACH EYE BID [facility] Stop: 12/03/17 08:59 Last Admin: 10/09/17 19:02 Dose: Not Given Cilostazol (Pletal) 100 mg PO BID [facility] Stop: 12/03/17 08:59 Last Admin: 10/09/17 16:47 Dose: 100 mg Docusate Sodium (Colace) 100 mg PO BID [facility] Stop: 12/03/17 08:59 Last Admin: 10/09/17 16:46 Dose: 100 mg Duloxetine HCl (Cymbalta) 60 mg PO DAILY [facility] Stop: 12/03/17 08:59 Last Admin: 10/09/17 09:48 Dose: 60 mg Escitalopram Oxalate (Lexapro) 10 mg PO DAILY [facility] PRN Reason: Protocol Stop: 12/05/17 12:24 Last Admin: 10/09/17 09:49 Dose: 10 mg Famotidine (Pepcid) 40 mg PO BID [facility] Stop: 12/03/17 08:59 Last Admin: 10/09/17 19:01 Dose: 40 mg Ferrous Sulfate (Iron) 325 mg PO BID [facility] Stop: 12/07/17 08:59 Last Admin: 10/09/17 16:46 Dose: 325 mg Fluticasone Propionate (Flonase) 1 spr NS DAILY PRN PRN Reason: Nasal Congestion Stop: 12/02/17 20:05 Gabapentin (Neurontin) 300 mg PO TID [facility] Stop: 12/02/17 20:59 Last Admin: 10/09/17 21:17 Dose: 300 mg Hydralazine HCl (Apresoline) 20 mg PO Q8HR [facility] Stop: 12/03/17 20:59 Last Admin: 10/10/17 05:00 Dose: Not Given Ibuprofen (Motrin) 400 mg PO Q8H PRN PRN Reason: PAIN Stop: 12/02/17 20:05 Last Admin: 10/07/17 10:10 Dose: 400 mg Insulin Aspart (Novolog Insulin Sliding Scale) 0 units SUBQ 0630 [facility] PRN Reason: Protocol Stop: 12/07/17 06:29 Last Admin: 10/09/17 05:45 Dose: Not Given Insulin Aspart (Novolog Insulin Sliding Scale) 0 units SUBQ 2100 [facility] PRN Reason: Protocol Stop: 12/06/17 20:59 Last Admin: 10/09/17 21:19 Dose: 4 units Insulin Detemir (Levemir Insulin) 27 units SUBQ HS [facility] PRN Reason: Protocol Stop: 12/02/17 20:59 Last Admin: 10/09/17 21:20 Dose: 27 units Insulin Detemir (Levemir Insulin) 37 units SUBQ DAILY [facility] PRN Reason: Protocol Stop: 12/03/17 08:59 Last Admin: 10/09/17 11:25 Dose: 37 units Isosorbide Mononitrate (Imdur) 30 mg PO DAILY [facility] Stop: 12/03/17 08:59 Last Admin: 10/09/17 09:48 Dose: Not Given Magnesium Hydroxide (Milk Of Magnesia) 30 ml PO DAILY PRN PRN Reason: Constipation Stop: 12/02/17 20:05 Memantine (Namenda) 5 mg PO DAILY [facility] Stop: 12/04/17 08:59 Last Admin: 10/09/17 09:49 Dose: 5 mg Metoprolol Tartrate (Lopressor) 12.5 mg PO DAILY [facility] Stop: 12/03/17 08:59 Last Admin: 10/09/17 09:49 Dose: Not Given Oxybutynin Chloride (Ditropan) 5 mg PO TID [facility] Stop: 12/02/17 20:59 Last Admin: 10/09/17 21:17 Dose: 5 mg Simvastatin (Zocor) 20 mg PO QPM [facility] PRN Reason: Protocol Stop: 12/03/17 16:59 Last Admin: 10/09/17 16:46 Dose: 20 mg Tramadol HCl (Ultram) 50 mg PO Q4H PRN PRN Reason: PAIN Stop: 12/02/17 18:47 Last Admin: 10/09/17 10:23 Dose: 50 mg Triamterene/HCTZ (Dyazide) 1 cap PO MWF [facility] Stop: 12/05/17 08:59 Last Admin: 10/08/17 09:56 Dose: 1 cap Zolpidem Tartrate (Ambien) 5 mg PO HS PRN PRN Reason: Insomnia Stop: 12/02/17 20:05 Last Admin: 10/10/17 00:43 Dose: 5 mg General: Alert, No acute distress HEENT: Atraumatic Neck: Supple Cardiovascular: Regular rate Lungs: Clear to auscultation Abdomen: Bowel sounds, Soft Extremities: Other (No edema, non ambulatory) Neurological: Other (Non ambulatory) Skin: Other (Body itching) Psych/Mental Status: Other (Awake, alert, calm, confused) Assessment/Plan - Assessment Assessment: Patient is awake, alert, calm, in no acute distress. She refer abdominal pain with food. Dx: Psychosis, Depression, HTN, DM, CAD, CHF. Anemia - Plan Plan: Patient is under Psychiatric care, Will continue with SNF meds. H pylory is requested. Will continue to monitor. Nutritional Asmnt/Malnutr-PDOC - Dietary Evaluation Malnutrition Findings (Please click <Entered> for more info): Nutritional Asmnt/Malnutrition Start: 10/09/17 09: 28 Text: Status: Complete Freq: Document 10/09/17 09:28 LCHENG (Rec: 10/09/17 09:29 LCHENG [email or web address]) Nutritional Asmnt/Malnutrition Patient General Information Nutritional Screening Moderate Risk Diagnosis depression Pertinent Medical Hx/Surgical Hx CAD, CHF, HTN, weakness, DM, psychosis Subjective Information Pt seen in her room having lunch at time of visit. No question or concern about diet . Per EMR, PO intake 75-100%. Current Diet Order/ Nutrition Support [facility]-60 Patient / S.O Can't verbalize diet edu Pertinent Medications colace, iron, novolog, levemir Pertinent Labs 10/09 Na 134, Glucose 264 Nutritional Hx/Data Height 1.6 m Height (Calculated Centimeters) 160.0 Current Weight (lbs) 55.338 kg Weight (Calculated Kilograms) 55.3 Weight (Calculated Grams) 42466.3 [place] Body Weight 115 Body Mass Index (BMI) 21.6 Weight Status Approriate GI Symptoms GI Symptoms None Last BM 10/07 Difficult in: None Skin Integrity/Comment: intact Current %PO Good (75-100%) Estimated Nutritional Goals BEE in Kcals: Using Current wt Calories/Kcals/Kg 25-30 Kcals Calculated 3417-8405 Protein: Using Current wt Protein g/k-1.2 Protein Calculated 55-66 Fluid: ml 1375-1650ml (1ml/kcal) Nutritional Problem 1. Problem Problem altered nutrition related labs Etiology hx of DM Signs/Symptoms: Glucose 264 Intervention/Recommendation Comments 1. Continue with [facility] 60-gm diet as ordered. 2. MD to adjust insulin for optimal glycemic control. 3. Monitor PO intake, wt, labs and skin integrity 4. F/U as moderate risk in 3-5 days, 10/11-10/13 Expected Outcomes/Goals Expected Outcomes/Goals 1. PO intake to meet at least 75% of nutritional needs. 2. Wt stability, skin to remain intact, labs to approach WNL.
[2017-10-10] MEDS: INSULIN ASPART SLIDING SCALE 100 UNITS/ML UNIT SUBQ SCH (08:50)
[2017-10-10] MEDS: Multivitamin w/ Minerals Tab PO SCH (09:19)
[2017-10-10] MEDS: Ferrous Sulfate 325 MG TAB PO SCH (09:20)
--- NOTE | 2017-10-10 21:03 | Discharge Summary ---
DATE OF DISCHARGE: 10/10/2017 IDENTIFYING INFORMATION: The patient is an 82-year-old female. CHIEF COMPLAINT: The patient was sent because of agitation, depression. The patient admits to feeling depressed. She is a well-known case to me and I has been seeing her for a while at [place] and needs to be on Zoloft. She denies any intent to harm herself. She denies any visual hallucination or paranoia. COURSE OF HOSPITAL: The patient continue with the duloxetine 60 mg daily and Lexapro increased to 10 mg a day. The patient was continued with her other medication by Dr. Mcneil on Pepcid and iron, gabapentin, hydralazine, ibuprofen, insulin. The patient progressively got better as she improved, felt she could be discharged to a lesser level of care. The patient was also initiated on her Namenda 5 mg daily that was done by Dr. Mcneil because of her dementia. She was put on metoprolol. Also, she is on oxybutynin because of incontinence; simvastatin, tramadol for pain, and triamterene/hydrochlorothiazide. 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 MEDICAL DIAGNOSES: Deferred to Dr. Mcneil. The patient will be discharged, will followup with the psychiatrist, primary care physician and therapist. EXPECTED OUTCOME: Stable, if patient complies with above. JOB# [id number]
--- NOTE | 2017-10-14 23:15 | Progress Notes ---
DATE: 10/05/2017 SUBJECTIVE: Chart reviewed and the patient interviewed. Also discussed the patient's condition with the staff and reviewed the records and labs. The patient is still in a depressed mood. The patient also is still isolative and most of the time seems to be withdrawn. Also, interacting minimally with others. The patient denies any thoughts of suicide or homicide. She also trying to interact more with peers and with others. ASSESSMENT: The patient showed some improvement. TREATMENT PLAN: We will continue to monitor her behavior and her condition. Also, continue to adjust psychotropic medications and working on her ineffective coping. JOB# [id number]
== END 2017-10-10 16:15 | disposition home or self-care (01) | DRG 885 ==
LOC: GERO2 17:21
PROVIDERS: ADMIT Psychiatry & Neurology Psychiatry; ATTEND Psychiatry & Neurology Psychiatry
DX: F33.9 Major depressive disorder, recurrent, unspecified (principal); E11.65 Type 2 diabetes mellitus with hyperglycemia; I11.0 Hypertensive heart disease with heart failure; I50.9 Heart failure, unspecified; F41.9 Anxiety disorder, unspecified; D64.9 Anemia, unspecified; I25.10 Atherosclerotic heart disease of native coronary artery without angina pectoris; Z79.4 Long term (current) use of insulin
CPT/HCPCS: 36415-UA; 80053-TC; 84443-TC; 85025-TC; 86677-90; 97530; J1815; X3904; Z7610

== ENCOUNTER 2018-06-07 15:42 | Emergency (ER) | payer MEDICARE, MEDICAID ==
[2018-06-07] MEDS ORDERED: Morphine Sulfate 2 mg/mL 1mL Syr IV STA (15:59)
[2018-06-07 16:24] LABS: % BASOPHILS 0.1 % (0.0-2.0); % EOSINOPHILS 0.5 % (0.0-5.0); % LYMPHOCYTES 6.4 % (20.0-50.0); % MONOCYTES 4.5 % (2.0-10.0); % NEUTROPHILS 88.5 % (40.0-80.0); EOSINOPHILE ABSOLUTE 0.1 Th/cmm (0.1-0.4); HEMATOCRIT 29.2 % (41.0-60); HEMOGLOBIN 9.7 gm/dL (12-16); LYMPHOCYTE ABSOLUTE 0.7 Th/cmm (1.5-3.0); MEAN CELL VOLUME 72.2 fl (81-100); MEAN CORPUSCULAR HEMOGLOBIN 23.9 pg (27.0-31.0); MEAN CORPUSCULAR HGB CONC 33.1 pg (28.0-36.0); MEAN PLATELET VOLUME 6.5 fl; MONOCYTE ABSOLUTE 0.5 Th/cmm (0.3-1.0); PLATELET COUNT 295 Th/cmm (150-400); RED BLOOD COUNT 4.05 Mil/cmm (3.80-5.20); WHITE BLOOD COUNT 10.3 Th/cmm (4.8-10.8)
[2018-06-07 16:47] LABS: ALB/GLOB RATIO 1.2 (1.0-1.8); ALBUMIN 3.9 gm/dL (3.7-5.3); ALKALINE PHOSPHATASE 52 U/L (34-104); ANION GAP 13.5 (7.0-16.0); BILIRUBIN,TOTAL 0.3 mg/dL (0.3-1.0); BUN - UREA NITROGEN 19 mg/dL (7-25); CALCIUM SERUM 10.2 mg/dL (8.6-10.3); CHLORIDE 102 mEq/L (98-107); GLUCOSE 343 mg/dL (70-105); MAGNESIUM 1.3 mg/dL (1.9-2.7); PHOSPHOROUS 1.4 mg/dL (2.5-5.0); POTASSIUM SERUM 4.5 mEq/L (3.5-5.1); SGOT 22 U/L (13-39); SGPT/ALT 11 U/L (7-52); SODIUM SERUM 138 mEq/L (136-145); TOTAL PROTEIN,SERUM 7.2 gm/dL (6.0-8.3)
[2018-06-07] MEDS ORDERED: Morphine Sulfate 2 mg/mL 1mL Syr ONE (16:51)
[2018-06-07] MEDS ORDERED: Potassium Phosphate 20 MMOLE in Sodium Chloride 0.9% 250 ML IV ONE (17:17)
[2018-06-07] MEDS ORDERED: Magnesium Sulfate 1 gm/2 mL 2mL Vial IV ONE (17:42)
[2018-06-07] MEDS ORDERED: Morphine Sulfate 4 mg/mL 1mL Syr IVP STA (17:58)
[2018-06-07] MEDS ORDERED: Morphine Sulfate 4 mg/mL 1mL Syr ONE ×2 (18:00→21:53)
[2018-06-07] MEDS ORDERED: KCL 20mEq/100mL Premix 20 MEQ/100 ML PIGGYBACK IV ONE (18:51)
--- NOTE | 2018-06-07 18:55 | ED Physician Chart ---
ED Chief Complaint/HPI - Patient Information Date Seen:: 06/07/18 Time Seen:: 16:35 Chief Complaint:: neck & L shoulder pain s/p fall History of Present Illness:: L shoulder pain s/p fall. Was bathing herself alone when she fell. Prior to fall, patient was dizzy and had chest pressure through to her back. Now, c/o neck pain and left shoulder pain. Allergies:: Allergies Allergy/AdvReac Type Severity Reaction Status Date / Time Sulfa (Sulfonamide Allergy Verified 06/07/18 16:14 Antibiotics) Vitals:: Vital Signs - 8 hr 06/07/18 16:35 Temp 97.4 F HR 103 RR 18 BP 168/87 O2 Sat % 98 Historian:: Patient Review:: Nurse's Note Reviewed, Transfer documents Reviewed ED Review of Systems - Review of Systems General/Constitutional: No fever, No chills, No weight loss, No weakness, No diaphoresis, No edema, No loss of appetite Skin: No skin lesions, No rash, No bruising Head: No headache, No light-headedness Eyes: No loss of vision, No pain, No diplopia ENT: No earache, No nasal drainage, No sore throat, No tinnitus Neck: Neck pain, No swelling, No thyromegaly, No stiffness, No mass noted Cardio Vascular: Chest pain Pulmonary: No SOB, No cough, No sputum, No wheezing GI: No nausea, No vomiting, No diarrhea, No pain, No melena, No hematochezia, No constipation, No hematemesis G/U: No dysuria, No frequency, No hematuria Musculoskeletal: Bone or joint pain, Back pain Endocrine: No polyuria, No polydipsia Psychiatric: No prior psych history, No depression, No anxiety, No suicidal ideation, No homicidal ideation, No auditory hallucination, No visual hallucination Hematopoietic: No bruising, No lymphadenopathy Allergic/Immuno: No urticaria, No angioedema Neurological: No syncope, No focal symptoms, Weakness, No paresthesia, No headache, No seizure, Dizziness, No confusion, No vertigo ED Past Medical History - Past Medical History Obtainable: No Past Medical History: HTN, DM, CAD, Dyslipidemia, PUD/GERD, Arthritis, Dementia , Other (peripheral vascular disease) Psychiatricy History: Depression, Dementia, Other (anxiety; psychosis) Family Medical History - Family Member Mother History Unknown: Yes Ethnicity: Unknown Living Status: Unknown Hx Family Cancer: (unknown) Hx Family Coronary Artery Disease: (unknown) Hx Family Congestive Heart Failure: (unknown) Hx Family Hypertension: (unknown) Hx Family Stroke: (unknown) Hx Family Diabetes: (unknown) Hx Family Seizures: (unknown) Hx Family Dementia: (unknown) Hx Family AIDS: (unknown) Hx Family COPD: (unknown) Hx Family Hepatitis: (unknown) Hx Family Psychiatric Problems: (unknown) Hx Family Tuberculosis: (unknown) ED Physical Exam - Physical Examination General/Constitutional: Awake, Well-developed, well-nourished, Alert Other Gen/Cons comments:: in pain--neck and left shoulder pain. Head: Atraumatic Eyes: Lids, conjuctiva normal, PERRL, EOMI Skin: Nl inspection, No rash, No skin lesions, No ecchymosis, Well hydrated, No lymphadenopathy ENMT: External ears, nose nl Neck: No mass, No stridor Other Neck comments:: c/o neck pain---therefore full c-spine precautions ordered and a c-collar was placed. Respiratory: Nl effort/Exclusion, Clear to Auscultation, No Wheeze/Rhonchi/Rales Cardio Vascular: RRR, No murmur, gallop, rubs, NL S1 S2 GI: No tenderness/rebounding/guarding, No organomegaly, No hernia, Normal BS's, Nondistended, No mass/bruits, No McBurney tenderness Other Extremities comments:: left shoulder pain to palpation. sling in place. NV intact. Appearance of a left shoulder dislocation (anterior) Neuro/Psych: Alert/oriented, Normal sensory exam, Judgement/insight normal, Mood normal Misc: Normal back ED Labs/Radiology/EKG Results - Lab Results Results: Laboratory Tests 06/07/18 06/07/18 06/07/18 16:15 16:15 16:15 WBC 10.3 RBC 4.05 Hgb 9.7 L Hct 29.2 L MCV 72.2 L MCH 23.9 L MCHC Differential 33.1 RDW 17.0 Plt Count 295 MPV 6.5 Neutrophils % 88.5 H Lymphocytes % 6.4 L Monocytes % 4.5 Eosinophils % 0.5 Basophils % 0.1 Sodium 138 Potassium 4.5 Chloride 102 Carbon Dioxide 27.0 Anion Gap 13.5 BUN 19 Creatinine 1.0 Est GFR ( Amer) TNP Est GFR (Non-Af Amer) TNP BUN/Creatinine Ratio 19.0 Glucose 343 H Calcium 10.2 Phosphorus 1.4 L Magnesium 1.3 L Total Bilirubin 0.3 AST 22 ALT 11 Alkaline Phosphatase 52 Troponin I 0.03 Total Protein 7.2 Albumin 3.9 Globulin 3.3 Albumin/Globulin Ratio 1.2 ED Assessment - Assessment General Assessment: CT of cspine: occipital decompression with postoperative changes. No fracture or subluxation CT head: post surgical changes with encephalomalacia of cerebellum. No hemorrhage per radiology. Streak artifact. CXR: NAD per my reading. L shoulder: Left humeral head avulsion fracture with a left shoulder anterior dislocation. Right humerus fracture (with malunion mid shaft). Assessment/Comments:: spoke to Dr. Bunch at 19:47. He would like to consult Dr. Romero prior to admitting the patient to see if he will be doing the procedure tonight. Dr. Romero, orthopedic surgeon, is not available. He was called several times at the number of . No answer. Matt, the warehouse hand, googled Dr. Romero and that is the only number for him in the book. I will not personally relocate a shoulder that has an associated fracture with it. The orthopedist is not available. Therefore, I have called Dr. Bunch back to confirm that he agrees with transferring the patient for a higher level of care per EMTALA. Dr. Butcher aware that patient needs to be transferred and she is aware of the following: Patient is NPO. Lactated Ringer's started at 125 cc/hour. Blood sugar to be checked for insulin sliding scale coverage. ED Septic Shock - . Is Septic Shock (SBP<90, OR Lactate>4 mmol\L) present?: No - <6hrs of presentation: Vital Signs: Vital Signs - 8 hr 06/07/18 16:35 Temp 97.4 F HR 103 RR 18 BP 168/87 O2 Sat % 98 ED Reassessment (Disposition) - Reassessment Reassessment Condition:: Improved - Diagnosis Diagnosis:: Closed left shoulder dislocation with a humeral avulsion fracture Neck pain--no fracture with postoperative changes from occipital decompression Diabetes mellitus Hypertension Peripheral vascualr disease Dementia Psychosis Depressive disorder Anxiety disorder - Patient Disposition Discharge/Transfer:: Acute Care (other hosp) Condition at Disposition:: Stable, Unchanged
[2018-06-07 18:57] LABS: URINE SOURCE CLEAN C
[2018-06-07 18:59] LABS: URINE BILIRUBIN NEGATIVE (NEGATIVE); URINE BLOOD TRACE (NEGATIVE); URINE GLUCOSE (UA) >=1000 mg/dL (NEGATIVE); URINE KETONE NEGATIVE (NEGATIVE); URINE LEUKOCYTE ESTERASE NEGATIVE (NEGATIVE); URINE MICROSCOPIC INDICATED? YES; URINE NITRATE NEGATIVE (NEGATIVE); URINE PROTEIN TRACE mg/dL (NEGATIVE); URINE UROBILINOGEN 0.2 E.U./dL (0.2 - 1.0)
[2018-06-07 19:27] LABS: URINE COLOR STRAW
[2018-06-07 19:31] LABS: URINE CLARITY CLEAR (CLEAR)
[2018-06-07 19:32] LABS: URINE BACTERIA NONE SEEN /hpf (NONE SEEN); URINE EPITHELIAL CELLS RARE /lpf (FEW); URINE RBC NONE SEEN /hpf (0-5); URINE WBC NONE SEEN /hpf (0-5)
[2018-06-07 19:33] LABS: AMPHETAMINE URINE NEGATIVE (NEGATIVE); BARBITURATES URINE NEGATIVE (NEGATIVE); BENZODIAZEPINES QUAL URINE NEGATIVE (NEGATIVE); CANNABINOID THC NEGATIVE (NEGATIVE); COCAINE METABOLITE QUAL URINE NEGATIVE (NEGATIVE); METHADONE URINE NEGATIVE (NEGATIVE); METHAMPHETAMINES QUAL URINE NEGATIVE (NEGATIVE); OPIATES (MORPHINE) QUAL. URINE POSITIVE (NEGATIVE); PHENCYCLIDINE (PCP) URINE NEGATIVE (NEGATIVE); TRICYCLICS (TCA) QUAL. URINE NEGATIVE (NEGATIVE)
[2018-06-07 20:07] LABS: NEUTROPHILS 86 % (40-80)
[2018-06-07 20:08] LABS: BAND NEUTROPHILE 1 % (0-10); LYMPHOCYTE 8 % (20-50); MONOCYTE 5 % (2-10)
[2018-06-07] MEDS ORDERED: Lactated Ringer 1,000 ML IV ONE (20:12)
[2018-06-07] MEDS ORDERED: INSULIN HUMAN REGULAR 100 UNITS/ML UNIT SUBQ ONE (20:28)
[2018-06-07] MEDS ORDERED: INSULIN HUMAN REGULAR 100 UNITS/ML UNIT ONE (20:36)
[2018-06-07] MEDS ORDERED: Morphine Sulfate 4 mg/mL 1mL Syr IV STA (23:06)
--- NOTE | 2018-06-08 08:33 | Diagnostic Imaging Report ---
CT scan of the brain HISTORY: Dizziness, trauma Total DLP equals 629 CTDI equals 35.4 Axial sections were obtained from the base of the skull the vertex. Surgical changes associated with craniotomy defect involves the occipital bone. Hypodensity associated with severe encephalomalacia involves the left cerebellar hemisphere. There is generalized enlargement of the ventricular system along with enlargement of cerebral sulci and rectum existent reflecting atrophy. Extensive hypodensity is seen throughout the supratentorial and periventricular white matter regions. No mass effect. Findings are most likely associated with chronic small vessel ischemic disease. No acute intracerebral hemorrhage. No mass effect or shift of midline structures. No extra-axial masses or abnormal fluid collections. IMPRESSION: 1. No definite acute abnormalities 2. Surgical changes associated with encephalomalacia involving the left cerebellar hemisphere 3. Cerebral atrophy 4. Supratentorial white matter changes most likely associated with chronic small vessel ischemic disease.
--- NOTE | 2018-06-08 08:48 | Diagnostic Imaging Report ---
CT scan cervical spine HISTORY: Pain, trauma Total DLP equals 411 CTDI equals 22.1 Axial sections were obtained through the cervical spine. Additional sagittal and coronal reformatted images are provided. There are diffuse degenerative changes with hypertrophic spur formation noted about the endplates of all vertebrae. Narrowing of multiple intervertebral disc spaces. No acute abnormalities. No fractures. The prevertebral soft tissues appear normal. Apparent surgical changes noted at the base of the skull. IMPRESSION: 1. No acute abnormalities 2. Diffuse degenerative changes 3. Surgical changes about the occipital region of the skull.
--- NOTE | 2018-06-08 08:49 | Diagnostic Imaging Report ---
Portable chest x-ray HISTORY: Pain The heart is enlarged. Atherosclerotic calcification seen in the aorta. Allowing for a poor inspiration, no acute focal pulmonary processes. Degenerative changes seen throughout the spine. There appears to be compression involving the body T12. IMPRESSION: 1. Allowing for a poor inspiration, no acute focal pulmonary processes 2. Cardiomegaly with atherosclerotic vascular changes
--- NOTE | 2018-06-08 08:53 | Diagnostic Imaging Report ---
Right shoulder (2 views) HISTORY: Pain The exam demonstrates severe deformity associated with old fracture of the proximal humeral shaft. No acute abnormality seen about the right shoulder. No dislocation. No acute fractures. IMPRESSION: 1. Deformity involving the proximal humeral shaft consistent with an old fracture.
--- NOTE | 2018-06-08 08:54 | Diagnostic Imaging Report ---
Left shoulder (2 views) HISTORY: Pain, trauma The exam demonstrates dislocation of the left humeral head. A relatively large (greater than 2.0 cm) fracture fragment is noted adjacent to the lateral aspect of the humeral head. IMPRESSION: 1. Fracture dislocation of the right humerus.
== END 2018-06-07 23:45 | disposition short-term general hospital (02) ==
LOC: ER 15:42
DX: S42.302A Unspecified fracture of shaft of humerus, left arm, initial encounter for closed fracture (principal); S43.005A Unspecified dislocation of left shoulder joint, initial encounter; I73.9 Peripheral vascular disease, unspecified; I10 Essential (primary) hypertension; E11.9 Type 2 diabetes mellitus without complications; F32.9 Major depressive disorder, single episode, unspecified; F41.9 Anxiety disorder, unspecified; F29 Unspecified psychosis not due to a substance or known physiological condition; R42 Dizziness and giddiness; E78.5 Hyperlipidemia, unspecified; K21.9 Gastro-esophageal reflux disease without esophagitis; M19.90 Unspecified osteoarthritis, unspecified site; I25.10 Atherosclerotic heart disease of native coronary artery without angina pectoris; Z88.2 Allergy status to sulfonamides; W18.39XA Other fall on same level, initial encounter; Y93.89 Activity, other specified; Y92.89 Other specified places as the place of occurrence of the external cause; Y99.8 Other external cause status
CPT/HCPCS: 99285; 96365; 96361; 96372; 96375; 96376; 93005; 71045; 73030 ×2; 70450; 72125; 84484; 36415; 36416 ×2; 82948 ×2; 80307; 85007; 85025; 81001; 83036; 83735; 84100; 80053; 87081; J2270; J3480; J2405; J1815; A4217; J3475; Z7610